=== PATIENT | female | born 1955 | race Caucasian/White ===

== ENCOUNTER → 2020-04-20 10:33 | Outpatient (BNVA) | payer MEDICARE, OTHER, SELFPAY | PROVIDERS: PCP Internal Medicine; Visit Provider Surgery | DX: C50.912 Malignant neoplasm of unspecified site of left female breast (principal); Z79.811 Long term (current) use of aromatase inhibitors; Z17.0 Estrogen receptor positive status [ER+] | CPT/HCPCS: 99212 ==

== ENCOUNTER 2020-10-03 08:39 | Outpatient (REF) | payer MEDICARE, OTHER, SELFPAY ==
[2020-10-03 09:40] LABS: Hematocrit 43.3 % (37-47); Hemoglobin 14.1 g/dl (12.0-16.0); Mean Corpuscular HGB Conc 32.6 g/dl (31.0-35.0); Mean Corpuscular Hemoglobin 31.8 pg (27.0-33.0); Mean Corpuscular Volume 97.5 fL (80-98); Mean Platelet Volume 9.8 fL (9.4-12.3); Platelet Count 227 X10*3/uL (160-400); Red Blood Count 4.44 X10*6/uL (4.20-5.50); Red Cell Distribution Width 12.9 % (11.0-16.0); White Blood Count 4.3 X10*3/uL (4.8-10.8)
[2020-10-03 10:06] LABS: Alanine Aminotransferase 18 U/L (0-31); Albumin Level 4.2 g/dL (3.5-5.0); Alkaline Phosphatase 86 U/L (39-117); Anion Gap 13 (12-20); Aspartate Amino Transferase 18 U/L (5-31); Bilirubin Direct 0.2 mg/dL (0.0-0.5); Bilirubin Total 0.5 mg/dL (0.0-1.0); Blood Urea Nitrogen 14 mg/dL (9-16); Calcium 9.4 mg/dL (8.4-10.2); Carbon Dioxide 27 mmol/L (22-29); Chloride 104 mmol/L (96-108); Cholesterol 188 mg/dL; Estimated Glomerular Filt Rate > 60; Glucose Random 106 mg/dL (60-115); HDL Cholesterol 60 mg/dL; LDL Cholesterol Calculated 114 mg/dl; Potassium 4.6 mmol/L (3.3-5.1); Sodium 139 mmol/L (135-145); Total Protein 6.7 g/dL (6.5-8.0); Triglycerides 70 mg/dL
[2020-10-03 10:29] LABS: Thyroid Stimulating Hormone 1.52 uIU/mL (0.32-4.0)
[2020-10-03 10:57] LABS: Glucose Urine UA NEG (NEG); Leukocyte Esterase Urine NEG (NEG); Nitrite Urine NEG (NEG); PH 6.5 (5.0-8.0); Urine Blood TRACE (NEG); Urine Ketones NEG (NEG); Urine Protein NEG (NEG-TRACE)
[2020-10-03 11:00] LABS: Appearance Urine CLEAR; Color Urine YELLOW
[2020-10-03 11:17] LABS: Squamous Epithelial Cell Urine TRACE /LPF; WBC Urine 0 /HPF (0-4)
== END 2020-10-03 08:40 | disposition home or self-care (01) ==
LOC: HO.LAB 08:39
PROVIDERS: PCP Internal Medicine; Visit Provider Internal Medicine
DX: E78.01 Familial hypercholesterolemia (principal)
CPT/HCPCS: 36415; 80048; 80061; 80076; 81001; 81003; 84443; 85027

== ENCOUNTER → 2020-10-18 10:18 | Outpatient (BNVA) | payer MEDICARE, OTHER, SELFPAY | PROVIDERS: PCP Internal Medicine; Referring Provider Internal Medicine; Visit Provider Surgery | DX: Z85.3 Personal history of malignant neoplasm of breast (principal) | CPT/HCPCS: 99212 ==

== ENCOUNTER → 2020-12-04 14:42 | Outpatient (REF) | payer MEDICARE, OTHER, SELFPAY ==
--- NOTE | 2020-12-04 14:46 | CA_ITS ---
Transthoracic Echocardiogram Patient (Last, First, Middle): Paulette Moore Jane Gender: Female Date of : 1955 Age: 64 Procedure Date: 12/04/2020 Procedure Type: Transthoracic Echocardiogram Location: OP Height: 160.02 cm Weight: 74.84 kg BSA: 1.78 m2 Heart Rate: bpm BP: 120 / 70 mmHg Inspectors And Regulatory Officers: JAGDEEP/PEPE Referring MD: Justo Haider MD Photographic Aide: Karsten Zhao MD Symptoms: H34.9 - Unspecified retinal vascular occlusion Study Quality: Fair ECG Rhythm: Sinus Conclusions: - 1. Normal LV systolic function with grade 1 diastolic dysfunction 2. Normal cardiac valvular Doppler 3. Normal RV systolic pressure 4. No pericardial effusion Findings Left Ventricle Normal left ventricular size, thickness, and systolic function. The visually estimated ejection fraction is between 60-65%. Spectral Doppler is indicative of an impaired relaxation filling pattern. E/E prime ratio is <8, consistent with normal filling pressures. Evidence suggests grade I (mild) diastolic dysfunction. Right Ventricle Normal right ventricular cavity size. Atria The left atrium is normal in size. There is lipomatous hypertrophy of the interatrial septum. There is no evidence of interatrial shunt. The right atrium is normal in size. Aortic Valve Normal aortic valve structure and function. There is no aortic valve stenosis. There is no aortic valve regurgitation. Mitral Valve Normal mitral valve structure and function. There is trace mitral valve regurgitation. There is no mitral valve stenosis. Pulmonic Valve The pulmonic valve is likely normal. There is trace to mild pulmonic valve regurgitation. Tricuspid Valve Likely normal tricuspid valve structure and function. There is trace tricuspid valve regurgitation. The right ventricular systolic pressure is normal. The right ventricular systolic pressure is 12 mmHg. Normal right atrial pressure. There is no evidence of pulmonary hypertension. Great Vessels All visible segments of the aorta are normal in size. The pulmonary artery was not well visualized. Venous The inferior vena cava is normal in size and collapses greater than 50% with inspiration. Pericardium/Pleural There is no evidence of pericardial effusion. Prior Study Comparison No prior study available for comparison. Measurements 2D Linear Measurements IVSd: 1.00 0.6-0.9/0.6-1.0 cm LVIDd: 5.06 3.9-5.3/4.2-5.9 cm LVIDd Index: 2.84 2.4-3.2/2.2-3.1 cm/m2 LVIDs: 2.81 2.0-3.6 cm LVPWd: 0.87 0.7-1.1 cm Ao Root: 3.90 2.1-3.5 cm LA Diam: 3.30 2.7-3.8/3.0-4.0 cm LAIDs Index: 1.85 1.5-2.3 cm/m2 LV Mass: 210.79 67-162/88-224 g LV Mass Index: 118.42 43-95/49-115 g/m2 LVOT Diam: 2.20 3.0+(-)1.3 cm 2D Systolic Function EF 4C: 65.10 >55% EF 2C: 65.20 >55% EF BiP: 65.80 >55% Mitral Valve MV Pk E: 0.42 MV PK A: 0.78 MV Decel Time: 272.00 E/A: 0.50 E'Lateral: 7.51 E'Medial: 10.10 E/E' Med: 4.20 E/E' Lat: 5.60 PHT: 80.00 MVA PHT: 2.75 Decel Platte: 1.55 Aortic Valve AoV Pk Bennie: 1.26 AoV Mn Bennie: 0.96 AoV VTI: 0.22 AoV Pk Grad: 6.00 Aov Mn Grad: 4.00 KRISTIE Cont.VTI: 3.40 LVOT LVOT Pk Bennie: 1.00 LVOT Mn Bennie: 0.70 LVOT VTI: 0.19 LVOT Pk Grad: 4.00 LVOT Mn Grad: 2.00 LVOT Diam: 2.20 LVOT Area: 3.80 Diastolic Function MV Pk E: 0.42 MV Pk A: 0.78 E/A: 0.50 E'Medial: 10.10 E/E' Med: 4.20 E' Laterial: 7.51 E/E' Lat: 5.60 Right Ventricle TAPSE (mm): 1.77 TVS' Bennie: 11.90 Tricuspid Valve TR Pk Bennie: 1.49 TR Pk Grad: 9.00 RA Press: 3.00 RVSP: 12.00 Great Vessels Aorta Ao Root-2D: 3.90 2.0-3.7 cm Ao Asc: 3.50 2.1-3.4 cm Ao Arch: 2.80 Updated in Other Vendor System with Status of Final Karsten Zhao MD electronically signed on 12/05/2020 3:55:31 PM with status of Final
== END ==
LOC: HO.CARD 14:42
PROVIDERS: PCP Internal Medicine; Visit Provider Internal Medicine
DX: H34.9 Unspecified retinal vascular occlusion (principal)
CPT/HCPCS: 93306

== ENCOUNTER 2021-05-03 08:12 | Outpatient (REF) | payer MEDICARE, OTHER, SELFPAY ==
[2021-05-03 09:33] LABS: Alanine Aminotransferase 17 U/L (0-31); Albumin Level 4.1 g/dL (3.5-5.0); Alkaline Phosphatase 102 U/L (39-117); Anion Gap 10 (12-20); Aspartate Amino Transferase 18 U/L (5-31); Bilirubin Total 0.7 mg/dL (0.0-1.0); Blood Urea Nitrogen 12 mg/dL (9-16); Calcium 9.7 mg/dL (8.4-10.2); Carbon Dioxide 27 mmol/L (22-29); Chloride 105 mmol/L (96-108); Cholesterol 180 mg/dL; Estimated Glomerular Filt Rate > 60; Glucose Fasting 107 mg/dL (60-99); HDL Cholesterol 58 mg/dL; LDL Cholesterol Calculated 106 mg/dl; Potassium 4.4 mmol/L (3.3-5.1); Sodium 138 mmol/L (135-145); Total Protein 6.8 g/dL (6.5-8.0); Triglycerides 83 mg/dL
== END 2021-05-03 08:13 | disposition home or self-care (01) ==
LOC: HO.LAB 08:12
PROVIDERS: PCP Internal Medicine; Visit Provider Nurse Practitioner Family
DX: R73.01 Impaired fasting glucose (principal); E78.5 Hyperlipidemia, unspecified
CPT/HCPCS: 36415; 80053; 80061

== ENCOUNTER 2021-11-29 08:14 | Outpatient (REF) | payer MEDICARE, OTHER, SELFPAY ==
--- NOTE | 2021-11-29 08:18 | ECG_ITS ---
Test Reason : Z01.818 PRE-OP Blood Pressure : / mmHG Vent. Rate : 072 BPM Atrial Rate : 072 BPM P-R Int : 160 ms QRS Dur : 094 ms QT Int : 368 ms P-R-T Axes : 032 006 051 degrees QTc Int : 402 ms Normal sinus rhythm Normal ECG No previous ECGs available Referred By: Peyton Kurtz Electronically Signed By:MONE AGUIRRE
[2021-11-29 08:28] LABS: MANUAL DIFF FLAG NO
[2021-11-29 09:00] LABS: Basophils Absolute Auto 0.1 X10*3/uL (0.0-0.2); Basophils Percent Auto 1.4 % (0-2); Eosinophils Absolute Auto 0.2 X10*3/uL (0.0-0.4); Eosinophils Percent Auto 3.7 % (0-4); Hematocrit 42.9 % (37.0-47.0); Hemoglobin 14.3 g/dl (12.0-16.0); Lymphocytes Absolute Auto 1.8 X10*3/uL (1.2-4.9); Lymphocytes Percent Auto 37.7 % (20-40); Mean Corpuscular HGB Conc 33.3 g/dl (31.0-35.0); Mean Corpuscular Hemoglobin 32.2 pg (27.0-33.0); Mean Corpuscular Volume 96.6 fL (80.0-98.0); Mean Platelet Volume 9.4 fL (9.4-12.3); Monocytes Absolute Auto 0.5 X10*3/uL (0.1-1.2); Monocytes Percent Auto 9.3 % (2-11); Neutrophils Absolute Auto 2.3 x10*3/uL (2.0-8.3); Neutrophils Percent Auto 47.9 % (45-73); Platelet Count 252 X10*3/uL (160-400); Red Blood Count 4.44 X10*6/uL (4.20-5.50); Red Cell Distribution Width 13.5 % (11.0-16.0); White Blood Count 4.9 X10*3/uL (4.8-10.8)
[2021-11-29 09:02] LABS: Estimated Average Glucose 103 mg/dL; Hemoglobin A1c % 5.2 %
[2021-11-29 09:18] LABS: Alanine Aminotransferase 17 U/L (0-31); Albumin Level 4.1 g/dL (3.5-5.0); Alkaline Phosphatase 93 U/L (39-117); Anion Gap 13 (12-20); Aspartate Amino Transferase 18 U/L (5-31); Bilirubin Total 0.6 mg/dL (0.0-1.0); Blood Urea Nitrogen 11 mg/dL (9-16); Calcium 9.3 mg/dL (8.4-10.2); Carbon Dioxide 27 mmol/L (22-29); Chloride 104 mmol/L (96-108); Cholesterol 178 mg/dL; Estimated Glomerular Filt Rate > 60; Glucose Fasting 100 mg/dL (60-99); HDL Cholesterol 56 mg/dL; LDL Cholesterol Calculated 105 mg/dl; Sodium 140 mmol/L (135-145); Total Protein 6.6 g/dL (6.5-8.0); Triglycerides 86 mg/dL
[2021-11-29 09:42] LABS: Vitamin D 25-OH Total 50.2 ng/mL (>30)
== END 2021-11-29 08:15 | disposition home or self-care (01) ==
LOC: HO.LAB 08:14
PROVIDERS: Nurse Practitioner Family; PCP Internal Medicine; Visit Provider Internal Medicine
DX: Z01.818 Encounter for other preprocedural examination (principal); D72.819 Decreased white blood cell count, unspecified; R73.01 Impaired fasting glucose; E55.9 Vitamin D deficiency, unspecified; E78.5 Hyperlipidemia, unspecified
CPT/HCPCS: 36415; 80053; 80061; 82306; 83036; 85025; 93005

== ENCOUNTER 2021-12-11 13:58 | Outpatient (REF) | payer MEDICARE, OTHER, SELFPAY | END 2021-12-11 13:59 | disposition home or self-care (01) | LOC: HO.LNP 13:58 | PROVIDERS: Visit Provider Nurse Practitioner Family | DX: R10.2 Pelvic and perineal pain (principal) | CPT/HCPCS: 87086 ==

== ENCOUNTER 2022-11-27 11:44 | Outpatient (AMB) | payer MEDICARE, OTHER, SELFPAY ==
[2022-11-27 11:42] VITALS: BP 122/90; PULSE 81; O2SAT 97; BMI 30.9
--- NOTE | 2022-11-27 11:42 | A.OFFPC_ITS ---
Vital Signs 11/27/22 11:42 11/27/22 12:32 Height 5 ft 2 in Weight 169 lb BMI 30.9 BP 122/90 H 120/78 Blood Pressure Location Lt brachial Lt brachial Position Sitting Sitting Pulse 81 Pulse Source Pulse Oximeter Temp Source Skin Pulse Oximetry (%) 97 Oxygen Delivery Method Room Air Intake Visit Reasons: Right total shoulder replacement-12/17 at [facility] Intake Note: Patient is here for a Pre-op for Right total shoulder replacement scheduled with Dr. Xavier Parson [facility] on 01/14 Inoculator Required: No Allergies mushroom [MUSHROOM] Allergy (Severe, Verified 11/27/22 12:11) ANAPHYLAXIS penicillamine Allergy (Unknown, Verified 11/27/22 12:11) Unknown penicillin V Allergy (Unknown, Verified 11/27/22 12:11) hives Medication List - Last Reconciled 11/27/22 by ADDY Villalta aspirin 81 mg PO DAILY cholecalciferol (vitamin D3) 25 mcg PO DAILY escitalopram oxalate 10 mg PO DAILY flaxseed oil 1,000 mg PO BID [id number] C-Mn 500-400 mg (Glucosamine-Chondroitin Complex) caps PO multivitamin caps PO PRN risperidone 0.25 mg PO DAILY simvastatin 20 mg PO DAILY Tobacco use date assessed: 11/27/22 Fall risk assessment: No Falls in past year Last assessed Fall Risk: 11/27/22 Dental Screening Dental Screen Date: 11/27/22 Did you have a dental visit in the last 12 months?: Yes Did you have a dental problem in the last 6 months where you did not have access to dental care?: No Was dental information given to patient?: Patient has dentist HPI Right total shoulder replacement-12/17 at [facility] HPI Details Patient is a 66-year-old female who presents today for preop clearance. Pt of Dr. Haider. Surgery: Right reverse total shoulder replacement due to right shoulder osteoarthritis Date: 01/14/23 Surgeon: Dr. Xavier Fonseca Location: [facility], [place], [place] Anaesthesia: General. Patient reports history of general anesthesia in the past that she tolerated well. Patient denies history of perioperative hypothermia or blood clotting disorders. Pt is on aspirin 81 mg daily. Medical history significant for hyperlipidemia, arthritis, history of left breast cancer, retinal artery occlusion - patient reports this have resolved- followed by Dr. Vincent, elevated fasting glucose among others. Patient denies shortness of breath or chest pain. [facility] Medical History Annual physical exam History of left breast cancer Breast cancer Frozen shoulder Arthritis Hyperlipidemia Surgical History History of colonoscopy History of cataract surgery History of total right knee replacement History of knee replacement procedure of left knee History of appendectomy History of oophorectomy History of lumpectomy History of hernia surgery Family History Mother Breast cancer, Onset Age: 52 Brother Renal cancer, Onset Age: 33 Maternal Aunt Breast cancer, Onset Age: 80 Social History Housing: House Alcohol intake: current Alcohol intake frequency: a few times a month Alcohol type: beer Patient Tobacco Use Status: Former Tobacco user Tobacco use type: Cigarette e-Cigarette/Vaping Use: Never Used Second Hand Smoke Exposure: No service: No Current occupational status: retired Cognitive needs: No Hearing needs: No Vision needs: Yes (glasses) Questionnaire PHQ-9 Over the last 2 weeks, how often have you been bothered by any of the following problems? 1. Little interest or pleasure in doing things: not at all 2. Feeling down, depressed, or hopeless: not at all 3. Trouble falling or staying asleep, or sleeping too much: not at all 4. Feeling tired or having little energy: not at all 5. Poor appetite or overeating: not at all 6. Feeling bad about yourself - or that you are a failure or have let yourself or your family down: not at all 7. Trouble concentrating on things, such as reading the newspaper or watching television: not at all 8. Moving or speaking so slowly that other people could have noticed. Or the opposite - being so fidgety or restless that you have been moving around a lot more than usual: not at all 9. Thoughts that you would be better off or of hurting yourself in some way: not at all Total score: 0 Depression Screening Interpretation: Negative 54199 - PHQ-9 Billing: Yes Source: Developed by Drs. Guy Lewis, Hermelinda Ruth, Kamaljit Tam and colleagues, with an educational samantha from [employer]. Thrive Questionnaire Date Thrive assessed: 07/26/22 AUDIT C Alcohol Use Questionnaire (AUDIT-C) 1. How often do you have a drink containing alcohol?: 2-4 times a month 2. How many drinks containing alcohol do you have on a typical day when you are drinking?: 1 or 2 3. How often do you have six or more drinks on one occasion?: Never Total Score: 2 Score Reviewed/Action Taken: No BLAZE-7 AMB Questionnaire BLAZE-7 Date BLAZE - 7 assessed: 07/26/22 Feeling nervous, anxious, or on edge: 1 = Several days (on medication) Not being able to stop or control worryin = Not at all Worrying too much about different things: 0 = Not at all Trouble relaxin = Not at all Being so restless that it is hard to sit still: 0 = Not at all Becoming easily annoyed or irritable: 0 = Not at all Feeling afraid as if something awful might happen: 0 = Not at all Total BLAZE-7 score (0-4 normal; 5-9 mild; 10-14 moderate; 15-21 severe): 1 Source: Developed by Drs. Guy Lewis, Hermelinda Ruth, Kamaljit horvath nd colleagues, with an educational samantha from [employer]. BLAZE-7 Assessment Billing BLAZE-7 Assessment Tool: BLAZE-7 Assessment 35236 Review of Systems Const Denies body aches, Denies chills, Denies fever(s) and Denies headache(s) Eyes Denies change in vision ENT Denies dizziness, Denies otalgia, Denies headache(s), Denies nasal discharge, Denies sinus pain and Denies sore throat Card Denies chest pain, Denies edema, Denies lightheadedness and Denies dyspnea Resp Denies cough, Denies dyspnea and Denies wheezing GI Denies constipation, Denies diarrhea, Denies nausea and Denies vomiting Denies dysuria Musc Denies myalgias and Reports arthralgias Skin/Breast Denies rash Neuro Denies dizziness and Denies headache(s) Aller/Immun Denies wheezing Physical exam (Primary Care) Vital Signs: Last Vital Signs Pulse 81 11/27/22 11:42 BP 120/78 11/27/22 12:32 Pulse Ox 97 11/27/22 11:42 Oxygen Delivery Method Room Air 11/27/22 11:42 BMI result Body Mass Index 30.9 Tobacco/Smoking Status: Tobacco use Status Tobacco use date assessed 11/27/22 11/27/22 11:44 Patient Tobacco Use Status Former Tobacco user 11/27/22 11:44 Tobacco use type Cigarette 11/27/22 11:44 e-Cigarette/Vaping Use Never Used 11/27/22 11:44 PHQ-9: PHQ-9 Score PHQ-9: Total score 0 11/28/22 08:55 Depression Screening Interpretation: Negative Thrive Assessment: Date of Thrive Assessment Date Thrive assessed 07/26/22 11/27/22 11:44 Const General: cooperative and no acute distress Orientation/consciousness: patient oriented x3 HENMT Head: Yes normocephalic and Yes atraumatic Ears: TM's normal bilaterally Face and sinus: Yes sinuses nontender Mouth: oropharynx normal and moist mucous membranes Throat: Yes posterior oropharynx normal Eyes General: appearance normal, both eyes and all related structures Pupils: Equal, round and reactive pupils present EOM: EOMs intact bilaterally Neck Neck: Yes normal visual inspection, Yes full ROM and Yes no lymphadenopathy Thyroid: Thyroid normal Resp Effort & Inspection: normal respiratory effort and able to speak in complete sentences Auscultation: clear to auscultation bilaterally, no crackles, no rales, no rh onchi and no wheezes Cardio Rate: regular rate Rhythm: regular rhythm Heart sounds: S1 normal heart sound present, S2 normal heart sound present and no murmurs GI Palpation (GI): Soft to palpation, not firm, nontender, no guarding, not rigid and no hepatosplenomegaly Auscultation: normal bowel sounds General: No CVA tenderness Back/Spine/Pelvis Back: No CVA tenderness Skin General skin exam: no rashes or lesions noted Neuro General: patient oriented x3 Cranial nerves: Yes Equal, round and reactive pupils present Gait exam (Neuro): Normal gait present Extrem General: Yes full ROM and No edema Results Reviewed Results Reviewed: Laboratory Tests 11/27/22 13:01 WBC 5.2 RBC 4.21 Hgb 13.9 Hct 41.2 MCV 97.9 MCH 33.0 MCHC 33.7 RDW 12.7 Plt Count 225 MPV 9.7 Absolute Nucleated RBC 0.000 Nucleated RBC % (auto) 0.0 PT 11.4 INR 0.9 Sodium 137 Potassium 4.2 Chloride 106 Carbon Dioxide 24 Anion Gap 11 L BUN 15 Creatinine 0.71 Estim Creat Clear Calc Not Reportable Estimated GFR > 60 Random Glucose 94 Estimat Average Glucose 103 Hemoglobin A1c % 5.2 Calcium 9.2 TSH 1.39 Assessment and Plan Assessment & Plan (1) Osteoarthritis of right shoulder: Code(s): M19.011 - Primary osteoarthritis, right shoulder Plan: Surgery: Right reverse total shoulder replacement due to right shoulder osteoarthritis Date: 01/14/23 Surgeon: Dr. Xavier Fonseca Location: [place], [place] Anaesthesia: General. Patient reports history of general anesthesia in the past that she tolerated well. (2) Pre-op evaluation: Code(s): Z01.818 - Encounter for other preprocedural examination Plan: METs > 4; RCRI Class 1 cardiovascular risk 0.4% for an intermediate risk surgery (recent blood work 11/2022) Regarding preop clearance, the patient is at acceptable risk for proposed surgery. Reviewed with the patient that no surgery is completely free of risk and that this examination is to assist the surgeon in reviewing informed consent. Postop care including DVT prophylaxis per surgeon. Patient is cleared for surgery. Patient is to hold flaxseed oil 2 weeks before surgery and aspirin 5 days before surgery. 11/27/2022 EKG with no acute findings, reviewed by Dr. Desai. Ordering Physician: Oralia Brady Date of Service: 11/27/22 Procedure(s): ECG 12 lead EKG Accession Number(s): [id number] cc: Oralia Brady~ Test Reason : preop Blood Pressure : / mmHG Vent. Rate : 068 BPM Atrial Rate : 068 BPM P-R Int : 152 ms QRS Dur : 090 ms QT Int : 370 ms P-R-T Axes : 037 -02 037 degrees QTc Int : 393 ms Normal sinus rhythm Normal ECG When compared with ECG of 29-NOV-2021 08:25, No significant change was found (3) Obesity (BMI 30.0-34.9): Code(s): E66.9 - Obesity, unspecified Plan: BMI 30.9 Orders: Orders Basic Metabolic Panel 11/27/22 M19.011 - Primary osteoarthritis, right shoulder, Z01.818 - Encounter for other preprocedural examination Hemoglobin A1c 11/27/22 Z01.818 - Encounter for other preprocedural examination ECG 12 lead EKG 11/27/22 Z01.818 - Encounter for other preprocedural examination Complete Blood Count no Diff 11/27/22 Z01.818 - Encounter for other preprocedural examination Prothrombin Time INR 11/27/22 Z01.818 - Encounter for other preprocedural examination TSH reflex Free T4 11/27/22 Z.818 - Encounter for other preprocedural examination Medications: Refilled simvastatin 20 mg PO DAILY 90 tabs 1RF E78.01 - Familial hypercholesterolemia Coding Level of Care Code Est Pt Level 3 (91480) Diagnoses Osteoarthritis of right shoulder M19.011 Pre-op evaluation Z01.818 Obesity (BMI 30.0-34.9) E66.9 Additional Codes BLAZE-7 Assessment Billing - BLAZE-7 Assessment Tool: BLAZE-7 Assessment 23371 ([id number])
[2022-11-27 12:32] VITALS: BP 120/78
== END 2022-11-27 13:16 | disposition home or self-care (01) ==
PROVIDERS: Visit Provider Nurse Practitioner Family
DX: M19.011 Primary osteoarthritis, right shoulder (principal); Z01.818 Encounter for other preprocedural examination; E66.9 Obesity, unspecified; Z68.30 Body mass index [BMI] 30.0-30.9, adult
CPT/HCPCS: 99213

== ENCOUNTER 2022-11-27 12:41 | Outpatient (REF) | payer MEDICARE, OTHER, SELFPAY ==
--- NOTE | 2022-11-27 12:45 | ECG_ITS ---
Test Reason : preop Blood Pressure : / mmHG Vent. Rate : 068 BPM Atrial Rate : 068 BPM P-R Int : 152 ms QRS Dur : 090 ms QT Int : 370 ms P-R-T Axes : 037 -02 037 degrees QTc Int : 393 ms Normal sinus rhythm Normal ECG When compared with ECG of 29-NOV-2021 08:25, No significant change was found Referred By: Oralia Brady Electronically Signed By:MONE AGUIRRE
[2022-11-27 13:19] LABS: Hematocrit 41.2 % (37.0-47.0); Hemoglobin 13.9 g/dl (12.0-16.0); Mean Corpuscular HGB Conc 33.7 g/dl (31.0-35.0); Mean Corpuscular Volume 97.9 fL (80.0-98.0); Mean Platelet Volume 9.7 fL (9.4-12.3); Platelet Count 225 X10*3/uL (160-400); Red Blood Count 4.21 X10*6/uL (4.20-5.50); Red Cell Distribution Width 12.7 % (11.0-16.0); White Blood Count 5.2 X10*3/uL (4.8-10.8)
[2022-11-27 13:23] LABS: INTERNATIONAL NORM RATIO 0.9 (0.9-1.1); Prothrombin Time 11.4 SEC (11.1-13.3)
[2022-11-27 13:39] LABS: Estimated Average Glucose 103 mg/dL; Hemoglobin A1C 118.7457 umol/L; Hemoglobin A1c % 5.2 % (<6.0)
[2022-11-27 14:14] LABS: Anion Gap 11 (12-20); Blood Urea Nitrogen 15 mg/dL (9-16); Calcium 9.2 mg/dL (8.4-10.2); Carbon Dioxide 24 mmol/L (22-29); Chloride 106 mmol/L (96-108); Estimated Glomerular Filt Rate > 60; Glucose Random 94 mg/dL (60-115); Potassium 4.2 mmol/L (3.3-5.1); Sodium 137 mmol/L (135-145)
[2022-11-27 14:20] LABS: TSH reflex Free T4 1.39 uIU/mL (0.32-4.0)
== END 2022-11-27 12:42 | disposition home or self-care (01) ==
LOC: HO.LAB 12:41
PROVIDERS: PCP Internal Medicine; Visit Provider Nurse Practitioner Family
DX: Z01.818 Encounter for other preprocedural examination (principal); M19.011 Primary osteoarthritis, right shoulder; D72.819 Decreased white blood cell count, unspecified; R73.01 Impaired fasting glucose; N28.0 Ischemia and infarction of kidney
CPT/HCPCS: 36415; 80048; 83036; 84443; 85027; 85610; 93005

== ENCOUNTER 2023-01-30 09:43 | Outpatient (AMB) | payer MEDICARE, OTHER, SELFPAY ==
--- NOTE | 2023-01-30 10:04 | MHC.PC.OV ---
Vital Signs 01/30/23 10:06 Height 5 ft 2 in Weight 168 lb BMI 30.7 BP 120/70 Blood Pressure Location Lt brachial Position Sitting Pulse 82 Pulse Source Pulse Oximeter Pulse Oximetry (%) 97 Oxygen Delivery Method Room Air Intake Visit Reasons: HLD Intake Note: Patient is here to follow up on HLD. Post right shoulder surgery. Senior Digital Designer Required: No Autism Motor Specialist: Not Required per policy Accompanied by: Self / Same As Patient Allergies mushroom [MUSHROOM] Allergy (Severe, Verified 02/09/23 13:41) ANAPHYLAXIS penicillamine Allergy (Unknown, Verified 02/09/23 13:41) Unknown penicillin V Allergy (Unknown, Verified 02/09/23 13:41) hives Medication List - Last Reconciled 02/09/23 by Justo Haider MD aspirin 81 mg PO DAILY cholecalciferol (vitamin D3) 25 mcg PO DAILY escitalopram oxalate 10 mg PO DAILY flaxseed oil 1,000 mg PO BID [id number]-[id number] C-Mn 500-400 mg (Glucosamine-Chondroitin Complex) caps PO multivitamin caps PO PRN risperidone 0.25 mg PO DAILY simvastatin 20 mg PO DAILY Tobacco use date assessed: 01/30/23 Fall risk assessment: No Falls in past year Last assessed Fall Risk: 01/30/23 Dental Screening Dental Screen Date: 01/30/23 Did you have a dental visit in the last 12 months?: Yes Did you have a dental problem in the last 6 months where you did not have access to dental care?: No Was dental information given to patient?: Patient has dentist HPI HLD HPI Details 67 yr old female presents to the office to discuss her chronic medical conditions. Patient recently underwent surgery on her right shoulder. She is healing well from the procedure. In a sling, continues physical therapy. Compliant with medications and able to do activities of all daily living. [facility] Medical History (Updated 11/27/22 @ 13:02 by ADDY Villalta) Annual physical exam History of left breast cancer Breast cancer Frozen shoulder Arthritis Hyperlipidemia Surgical History (Updated 01/30/23 @ 10:25 by RICARDO Payton) History of reverse total replacement of right shoulder joint History of colonoscopy History of cataract surgery History of total right knee replacement History of knee replacement procedure of left knee History of appendectomy History of oophorectomy History of lumpectomy History of hernia surgery Family History Mother Breast cancer, Onset Age: 52 Brother Renal cancer, Onset Age: 33 Maternal Aunt Breast cancer, Onset Age: 80 Housing: House Alcohol intake: current Alcohol intake frequency: a few times a month Alcohol type: beer Patient Tobacco Use Status: Former Tobacco user Tobacco use type: Cigarette e-Cigarette/Vaping Use: Never Used Second Hand Smoke Exposure: No service: No Current occupational status: retired Cognitive needs: No Hearing needs: No Vision needs: Yes (glasses) Questionnaire Thrive Questionnaire Date Thrive assessed: 07/26/22 BLAZE-7 AMB Questionnaire BLAZE-7 Date BLAZE - 7 assessed: 07/26/22 Source: Developed by Drs. Guy Lewis, Hermelinda Ruth, Kamaljit Tam and colleagues, with an educational samantha from [employer]. Physical exam (Primary Care) Vital Signs: Last Vital Signs Pulse 82 01/30/23 10:06 BP 120/70 01/30/23 10:06 Pulse Ox 97 01/30/23 10:06 Oxygen Delivery Method Room Air 01/30/23 10:06 BMI result Body Mass Index 30.7 Tobacco/Smoking Status: Tobacco use Status Tobacco use date assessed 01/30/23 01/30/23 10:27 Patient Tobacco Use Status Former Tobacco user 01/30/23 10:27 Tobacco use type Cigarette 01/30/23 10:27 e-Cigarette/Vaping Use Never Used 01/30/23 10:27 Thrive Assessment: Date of Thrive Assessment Date Thrive assessed 07/26/22 01/30/23 10:27 Const General: cooperative and healthy appearing Nutritional Appearance: well nourished Orientation/consciousness: patient oriented x3 Limitations: no limitations HENMT Head: Yes normal to inspection Eyes General: appearance normal, both eyes and all related structures Neck Neck: Yes normal visual inspection Chest Chest palpation & inspection: normal palpation of entire chest wall Resp Effort & Inspection: normal respiratory effort Neuro General: patient oriented x3 Extrem Other: Right shoulder is in a sling. Assessment and Plan Assessment & Plan (1) Osteoarthritis of right shoulder: Code(s): M19.011 - Primary osteoarthritis, right shoulder Plan: Continue medications and current program of physical therapy. (2) Hyperlipidemia: Code(s): E78.5 - Hyperlipidemia, unspecified Qualifiers: Hyperlipidemia type: familial hypercholesterolemia Qualified Code(s): E78.01 - Familial hypercholesterolemia Plan: BW revd with patient. Continue medications at same dosage. (3) Breast cancer: Comment: 2016 Code(s): C50.919 - Malignant neoplasm of unspecified site of unspecified female breast Qualifiers: Breast location: unspecified site of breast Estrogen receptor status: unspecified Patient sex: female Laterality: unspecified laterality Qualified Code(s): C50.919 - Malignant neoplasm of unspecified site of unspecified female breast Plan: Condition is stable. Coding Level of Care Code Est Pt Level 4 (23342) Diagnoses Osteoarthritis of right shoulder M19.011 Familial hypercholesterolemia E78.01 Hyperlipidemia type: familial hypercholesterolemia Malignant neoplasm of female breast, unspecified estrogen receptor status, unspecified laterality, unspecified site of breast C50.919 Breast location: unspecified site of breast Estrogen receptor status: unspecified Patient sex: female Laterality: unspecified laterality
[2023-01-30 10:06] VITALS: BP 120/70; PULSE 82; O2SAT 97; BMI 30.7
== END 2023-01-30 10:59 | disposition home or self-care (01) ==
PROVIDERS: Visit Provider Internal Medicine
DX: M19.011 Primary osteoarthritis, right shoulder (principal); E78.01 Familial hypercholesterolemia; C50.919 Malignant neoplasm of unspecified site of unspecified female breast
CPT/HCPCS: 99214

== ENCOUNTER 2023-02-20 07:02 | Outpatient (AMB) | payer MEDICARE, OTHER, SELFPAY ==
[2023-02-20 07:14] VITALS: BP 138/92; PULSE 80; TEMP 36.2; O2SAT 98; BMI 30.9
--- NOTE | 2023-02-20 07:14 | A.OFFPC_ITS ---
Vital Signs 3 02/20/23 07:14 Height 5 ft 2 in Weight 169 lb BMI 30.9 BP 138/92 H Blood Pressure Location Lt brachial Position Sitting Pulse 80 Pulse Source Pulse Oximeter Temp 97.2 F Temp Source Oral Pulse Oximetry (%) 98 Oxygen Delivery Method Room Air Intake Visit Reasons: swollen lymph nodes, bumps on head Allergies mushroom [MUSHROOM] Allergy (Severe, Verified 02/20/23 07:43) ANAPHYLAXIS penicillamine Allergy (Unknown, Verified 02/20/23 07:43) Unknown penicillin V Allergy (Unknown, Verified 02/20/23 07:43) hives Medication List - Last Reconciled 02/20/23 by ADDY Akers aspirin 81 mg PO DAILY cholecalciferol (vitamin D3) 25 mcg PO DAILY escitalopram oxalate 10 mg PO DAILY flaxseed oil 1,000 mg PO BID [id number]-icbxyjujf-fwm C-Mn 500-400 mg (Glucosamine-Chondroitin Complex) caps PO multivitamin caps PO PRN risperidone 0.25 mg PO DAILY simvastatin 20 mg PO DAILY Tobacco use date assessed: 01/30/23 Fall risk assessment: No Falls in past year Last assessed Fall Risk: 02/20/23 Dental Screening Dental Screen Date: 02/20/23 Did you have a dental visit in the last 12 months?: Yes Did you have a dental problem in the last 6 months where you did not have access to dental care?: No Was dental information given to patient?: Patient has dentist HPI HPI Comments 2 History of Present Illness0 Details 67-year-old female past medical history significant for hyperlipidemia, arthritis, frozen shoulder, breast cancer. Patient of Dr. Vitaly austin seen in January. Patient presents today for neck lump. Patient reports has had right sided neck lump x 1 year and she was hoping after her shoulder surgery it would resolve. Approximately 0.25cm x0.25cm mobile neck lump noted on examination. no erythema. Patient denies any other lumps, denies fevers,chills and unexplained weight loss. Denies difficulty swallowing. Patient reports was using old shampoo which he scalp to get itchy and she felt little bumps. 2 small scabbed dejah noted to scalp from scrathcing no lumps noted, no signs of inflammation or infection. Patient advised if scalp is dry and flaky to try OTC head and shoulders. PFSH Medical History (Updated 02/20/23 @ 07:33 by ADDY Akers) Annual physical exam History of left breast cancer Breast cancer Frozen shoulder Arthritis Hyperlipidemia Surgical History (Updated 01/30/23 @ 10:25 by RICARDO Payton) History of reverse total replacement of right shoulder joint History of colonoscopy History of cataract surgery History of total right knee replacement History of knee replacement procedure of left knee History of appendectomy History of oophorectomy History of lumpectomy History of hernia surgery Family History Mother Breast cancer, Onset Age: 52 Brother Renal cancer, Onset Age: 33 Maternal Aunt Breast cancer, Onset Age: 80 Social History Housing: House Alcohol intake: current Alcohol intake frequency: a few times a month Alcohol type: beer Patient Tobacco Use Status: Former Tobacco user Tobacco use type: Cigarette e-Cigarette/Vaping Use: Never Used Second Hand Smoke Exposure: No service: No Current occupational status: retired Cognitive needs: No Hearing needs: No Vision needs: Yes (glasses) Questionnaire PHQ-9 Over the last 2 weeks, how often have you been bothered by any of the following problems? 1. Little interest or pleasure in doing things: not at all 2. Feeling down, depressed, or hopeless: not at all 3. Trouble falling or staying asleep, or sleeping too much: not at all 4. Feeling tired or having little energy: not at all 5. Poor appetite or overeating: not at all 6. Feeling bad about yourself - or that you are a failure or have let yourself or your family down: not at all 7. Trouble concentrating on things, such as reading the newspaper or watching television: not at all 8. Moving or speaking so slowly that other people could have noticed. Or the opposite - being so fidgety or restless that you have been moving around a lot more than usual: not at all 9. Thoughts that you would be better off or of hurting yourself in some way: not at all Total score: 0 Depression Screening Interpretation: Negative Depression Screening Done: Yes 39094 - PHQ-9 Billing: Yes Source: Developed by Drs. Guy Lewis, Hermelinda Ruth, Kamaljit Tam and colleagues, with an educational samantha from [employer]. Thrive Questionnaire Date Thrive assessed: 07/26/22 AUDIT C Alcohol Use Questionnaire (AUDIT-C) 1. How often do you have a drink containing alcohol?: 2-4 times a month 2. How many drinks containing alcohol do you have on a typical day when you are drinking?: 1 or 2 3. How often do you have six or more drinks on one occasion?: Never Total Score: 2 Score Reviewed/Action Taken: No BLAZE-7 AMB Questionnaire BLAZE-7 Date BLAZE - 7 assessed: 07/26/22 Source: Developed by Drs. Guy Lewis, Hermelinda Ruth, Kamaljit Tam and colleagues, with an educational samantha from [employer]. Review of Systems Const Denies chills, Denies fatigue, Denies fever(s) and Denies poor appetite Eyes Denies no additional complaints ENT Reports Normal hearing present and Reports neck mass (right posterior neck lump ) Card Denies chest pain, Denies syncope, Denies rapid heart rate and Denies dyspnea Resp Denies cough and Denies dyspnea GI Denies change in stool character, Denies constipation, Denies diarrhea, Denies nausea and Denies vomiting Denies urinary frequency, Denies dysuria and Denies urinary urgency Neuro Reports Normal hearing present, Denies confusion and Denies syncope Psych Denies confusion Endo Denies fatigue Physical exam (Primary Care) Tobacco/Smoking Status: Tobacco use Status Tobacco use date assessed 01/30/23 01/30/23 10:27 Patient Tobacco Use Status Former Tobacco user 01/30/23 10:27 Tobacco use type Cigarette 01/30/23 10:27 e-Cigarette/Vaping Use Never Used 01/30/23 10:27 Depression Screening Interpretation: Negative Thrive Assessment: Date of Thrive Assessment Date Thrive assessed 07/26/22 01/30/23 10:27 Const General: No confusion Orientation/consciousness: No confusion HENMT Head: Yes normocephalic and Yes atraumatic Head images: 2 1. approximately 0.25x 0.25cm mobile neck mass, no erythema, non indurated, no fluctuance noted. Eyes Conjunctivae: conjunctivae normal Chest Chest palpation & inspection: normal inspection of the chest Resp Effort & Inspection: normal respiratory effort Auscultation: clear to auscultation bilaterally, no crackles, no rhonchi and no wheezes Cardio Rate: regular rate Rhythm: regular rhythm Heart sounds: S1 normal heart sound present and S2 normal heart sound present GI Inspection: Yes normal to inspection Neuro General: No confusion Cranial nerves: Yes Normal hearing present Extrem General: No edema Assessment and Plan Assessment & Plan (1) Localized swelling, mass and lump, neck: Code(s): R22.1 - Localized swelling, mass and lump, neck Plan: U/S ordered to furthure evaluate. Patients pcp to be cc'd on ultrasound results. (2) Dry scalp: Code(s): R23.8 - Other skin changes Plan: Patient advised if scalp continues to be dry/itching follow discontinuation of using her old shampoo to try OTC head and shoulders. If no improvement or worsening symptoms follow up. Patient agreeable to plan of care. Plan Keep scheduled follow up with pcp or follow up sooner if needed. Orders: Orders 2 US soft tiss head and/or neck Today R22.1 - Localized swelling, mass and lump, neck Coding Level of Care Code Est Pt Level 3 (63291) Diagnoses Localized swelling, mass and lump, neck R22.1 Dry scalp R23.8
== END 2023-02-20 07:38 | disposition home or self-care (01) ==
PROVIDERS: PCP Internal Medicine; Visit Provider Nurse Practitioner Family
DX: R22.1 Localized swelling, mass and lump, neck (principal); R23.8 Other skin changes
CPT/HCPCS: 99213

== ENCOUNTER 2023-02-27 13:17 | Outpatient (REF) | payer MEDICARE, OTHER, SELFPAY ==
--- NOTE | ~2023-02-27 | US_ITS ---
EXAMINATION: US SOFT TISSUE HEAD/NECK CLINICAL INFORMATION: Localized swelling, mass and lump, neck-right posterior neck lump. COMPARISON: None available. TECHNIQUE: Linear transducer willams-scale and color Doppler examination of the right neck level Va. FINDINGS: There are 2 architecturally normal-appearing lymph nodes seen in the area of clinical concern measuring 1.4 x 0.2 x 0.7 cm and 0.8 x 0.5 x 0.4 cm. US/US soft tiss head and/or neck IMPRESSION: Normal-appearing lymph nodes.
== END 2023-02-27 13:18 | disposition home or self-care (01) ==
LOC: HO.HMGCX 13:17
PROVIDERS: PCP Internal Medicine; Visit Provider Nurse Practitioner Family
DX: R22.1 Localized swelling, mass and lump, neck (principal)
CPT/HCPCS: 76536

== ENCOUNTER 2023-07-31 09:58 | Outpatient (AMB) | payer MEDICARE, OTHER, SELFPAY ==
--- NOTE | 2023-07-31 10:47 | A.OFFPC_ITS ---
Vital Signs 07/31/23 10:50 Height 5 ft 2 in Weight 171 lb BMI 31.3 BP 110/64 Blood Pressure Location Rt brachial Position Sitting Pulse 84 Pulse Source Pulse Oximeter Pulse Oximetry (%) 97 Oxygen Delivery Method Room Air Intake Visit Reasons: 6mth f/u Intake Note: Patient is here to follow up on HLD, Arthritis. Pt requesting for bone density testing order Neighborhood Conservation Officer Required: No Auto Repair Technician: Not Required per policy Accompanied by: Self / Same As Patient Allergies mushroom [MUSHROOM] Allergy (Severe, Verified 08/01/23 15:50) ANAPHYLAXIS penicillamine Allergy (Unknown, Verified 08/01/23 15:50) Unknown penicillin V Allergy (Unknown, Verified 08/01/23 15:50) hives Medication List - Last Reconciled 08/01/23 by Justo Haider MD aspirin 81 mg PO DAILY cholecalciferol (vitamin D3) 25 mcg PO DAILY cyclobenzaprine 10 mg PO BEDTIME escitalopram oxalate 10 mg PO DAILY flaxseed oil 1,000 mg PO BID [id number]-[id number]-[id number] C-Mn 500-400 mg (Glucosamine-Chondroitin Complex) caps PO multivitamin caps PO PRN risperidone 0.25 mg PO DAILY simvastatin 20 mg PO DAILY Tobacco use date assessed: 07/31/23 Fall risk assessment: No Falls in past year Last assessed Fall Risk: 07/31/23 Dental Screening Dental Screen Date: 07/31/23 Did you have a dental visit in the last 12 months?: Yes Did you have a dental problem in the last 6 months where you did not have access to dental care?: No Was dental information given to patient?: Patient has dentist HPI 6mth f/u HPI Details 67-year-old female presents to the offic e to discuss her chronic medical conditions. Patient has history of spondylosis and as a result the right side of her neck is always hurting. Pain is worse on turning the head towards the left side. She has minimal discomfort at all times on the right side of the neck. Patient recently had x-rays of her spine and was told she has a calcified thyroid. Compliant with her medications and reporting no side effects. Able to function and do all activities of daily living. Patient would like to get a DEXA scan. [facility] Medical History (Updated 08/01/23 @ 15:55 by Justo Haider MD) Spondylosis Annual physical exam History of left breast cancer Breast cancer Frozen shoulder Arthritis Hyperlipidemia Surgical History History of reverse total replacement of right shoulder joint History of colonoscopy History of cataract surgery History of total right knee replacement History of knee replacement procedure of left knee History of appendectomy History of oophorectomy History of lumpectomy History of hernia surgery Family History Mother Breast cancer, Onset Age: 52 Brother Renal cancer, Onset Age: 33 Maternal Aunt Breast cancer, Onset Age: 80 Social History Housing: House Alcohol intake: current Alcohol intake frequency: a few times a month Alcohol type: beer Patient Tobacco Use Status: Former Tobacco user Tobacco use type: Cigarette e-Cigarette/Vaping Use: Never Used Second Hand Smoke Exposure: Yes service: No Current occupational status: retired Cognitive needs: No Hearing needs: No Vision needs: Yes (glasses) Questionnaire PHQ-9 Over the last 2 weeks, how often have you been bothered by any of the following problems? 1. Little interest or pleasure in doing things: not at all 2. Feeling down, depressed, or hopeless: not at all 3. Trouble falling or staying asleep, or sleeping too much: not at all 4. Feeling tired or having little energy: not at all 5. Poor appetite or overeating: not at all 6. Feeling bad about yourself - or that you are a failure or have let yourself or your family down: not at all 7. Trouble concentrating on things, such as reading the newspaper or watching television: not at all 8. Moving or speaking so slowly that other people could have noticed. Or the opposite - being so fidgety or restless that you have been moving around a lot more than usual: not at all 9. Thoughts that you would be better off or of hurting yourself in some way: not at all Total score: 0 Depression Screening Interpretation: Negative Depression Screening Done: Yes Source: Developed by Drs. Guy Lewis, Hermelinda Ruth, Kamaljit Tam and colleagues, with an educational samantha from [employer]. Thrive Questionnaire Date Thrive assessed: 07/31/23 I am a: Patient What is your living situation today?: I have a steady place to live Within the past 12 months, did the food you bought not last and you didn't have the money to get more?: Never true Within the past 12 months, did you worry whether your food would run out before you got money to buy more?: Never true Do you have trouble paying for medicines?: No Do you have trouble getting transportation to medical appointments?: No Do you have trouble paying your heating and electricity bill?: No Do you have trouble taking care of your child, family member or friend?: No Do you have trouble with day-to-day activities such as bathing, preparing meals, shopping, managing finances, etc.?: No Are you currently unemployed and looking for a job?: No Are you interested in more education?: No Currently or been in a relationship where the following occur: no concerns re ported THRIVE Score: 0 AUDIT C Alcohol Use Questionnaire (AUDIT-C) 1. How often do you have a drink containing alcohol?: 2-4 times a month 2. How many drinks containing alcohol do you have on a typical day when you are drinking?: 1 or 2 Total Score: 2 BLAZE-7 AMB Questionnaire BLAZE-7 Date BLAZE - 7 assessed: 07/31/23 Feeling nervous, anxious, or on edge: 0 = Not at all Not being able to stop or control worryin = Not at all Worrying too much about different things: 0 = Not at all Trouble relaxin = Not at all Being so restless that it is hard to sit still: 0 = Not at all Becoming easily annoyed or irritable: 0 = Not at all Feeling afraid as if something awful might happen: 0 = Not at all Total BLAZE-7 score (0-4 normal; 5-9 mild; 10-14 moderate; 15-21 severe): 0 Source: Developed by Drs. Guy Lewis, Hermelinda Ruth, Kamaljit Tam and colleagues, with an educational samantha from [employer]. Physical exam (Primary Care) Vital Signs: Last Vital Signs Pulse 84 07/31/23 10:50 BP 110/64 07/31/23 10:50 Pulse Ox 97 07/31/23 10:50 Oxygen Delivery Method Room Air 07/31/23 10:50 BMI result Body Mass Index 31.3 Tobacco/Smoking Status: Tobacco use Status Tobacco use date assessed 07/31/23 07/31/23 10:55 Patient Tobacco Use Status Former Tobacco user 07/31/23 10:55 Tobacco use type Cigarette 07/31/23 10:55 e-Cigarette/Vaping Use Never Used 07/31/23 10:55 PHQ-9: PHQ-9 Score PHQ-9: Total score 0 08/01/23 15:10 Depression Screening Interpretation: Negative Thrive Assessment: Date of Thrive Assessment Date Thrive assessed 07/31/23 07/31/23 10:55 Currently or been in a relationship where the following occur: no concerns reported Advance Care Planning discussion: Exists, not on file Date of discussion: 07/31/23 Who was present: Patient Forms completed: Health Care Proxy Time spent: 1-15 minutes, not on file Actual minutes spent: 5 Const General: cooperative and healthy appearing Nutritional Appearance: well nourished Orientation/consciousness: patient oriented x3 Limitations: no limitations HENMT Head: Yes normal to inspection Eyes General: appearance normal, both eyes and all related structures Neck Neck: Yes normal visual inspection Chest Chest palpation & inspection: normal palpation of entire chest wall Resp Effort & Inspection: normal respiratory effort Neuro General: patient oriented x3 Assessment and Plan Assessment & Plan (1) Hyperlipidemia: Code(s): E78.5 - Hyperlipidemia, unspecified Qualifiers: Hyperlipidemia type: familial hypercholesterolemia Qualified Code(s): E78.01 - Familial hypercholesterolemia Plan: BW has been ordered, will call with results. (2) Spondylosis: Code(s): M47.9 - Spondylosis, unspecified Plan: Muscle relaxants have been called in Orders: Orders Complete Blood Count no Diff Today E78.01 - Familial hypercholesterolemia Lipid Panel Today E78.01 - Familial hypercholesterolemia Thyroid Stimulating Hormone Today E78.01 - Familial hypercholesterolemia XR DEXA axial skeleton Today M81.0 - Age-related osteoporosis without current pathological fracture MM screening mammo BI Today Z12.31 - Encounter for screening mammogram for malignant neoplasm of breast Basic Metabolic Panel Today E78.01 - Familial hypercholesterolemia Liver Panel Today E78.01 - Familial hypercholesterolemia UA and rflx microscopic Today E78.01 - Familial hypercholesterolemia Referrals BIBLICAL LANGUAGES PROFESSOR Referral Z12.4 - Encounter for screening for malignant neoplasm of cerv ix Medications: New cyclobenzaprine 10 mg PO BEDTIME 14 tabs 0RF Refilled simvastatin 20 mg PO DAILY 90 tabs 1RF E78.01 - Familial hypercholesterolemia Coding Level of Care Code Est Pt Level 3 (89235) Diagnoses Familial hypercholesterolemia E78.01 Hyperlipidemia type: familial hypercholesterolemia Spondylosis M47.9 Additional Codes Vital Signs *Quality* - Advance Care Planning discussion: Exists, not on file ([id number]) Vital Signs *Quality* - Time spent: 1-15 minutes, not on file ([id number])
[2023-07-31 10:50] VITALS: BP 110/64; PULSE 84; O2SAT 97; BMI 31.3
== END 2023-07-31 11:45 | disposition home or self-care (01) ==
PROVIDERS: PCP Internal Medicine; Visit Provider Internal Medicine
DX: E78.01 Familial hypercholesterolemia (principal); M47.9 Spondylosis, unspecified; Z00.00 Encounter for general adult medical examination without abnormal findings
CPT/HCPCS: 1124F; 99213

== ENCOUNTER 2023-08-02 08:52 | Outpatient (REF) | payer MEDICARE, OTHER, SELFPAY ==
[2023-08-02 09:12] LABS: Hematocrit 40.3 % (37.0-47.0); Hemoglobin 14.1 g/dl (12.0-16.0); Mean Corpuscular Hemoglobin 33.5 pg (27.0-33.0); Mean Corpuscular Volume 95.7 fL (80.0-98.0); Mean Platelet Volume 9.3 fL (9.4-12.3); Platelet Count 216 X10*3/uL (160-400); Red Blood Count 4.21 X10*6/uL (4.20-5.50); Red Cell Distribution Width 12.9 % (11.0-16.0); White Blood Count 4.5 X10*3/uL (4.8-10.8)
[2023-08-02 09:54] LABS: Alanine Aminotransferase 17 U/L (0-31); Alkaline Phosphatase 84 U/L (39-117); Anion Gap 14 (12-20); Aspartate Amino Transferase 18 U/L (5-31); Bilirubin Direct 0.2 mg/dL (0.0-0.5); Bilirubin Total 0.6 mg/dL (0.0-1.0); Blood Urea Nitrogen 16 mg/dL (9-16); Carbon Dioxide 23 mmol/L (22-29); Chloride 107 mmol/L (96-108); Cholesterol 171 mg/dL (<200); Estimated Glomerular Filt Rate > 60; Glucose Random 98 mg/dL (60-115); HDL Cholesterol 61 mg/dL (>40); LDL Cholesterol Calculated 99 mg/dL (<100); Sodium 140 mmol/L (135-145); Total Protein 6.7 g/dL (6.5-8.0); Triglycerides 59 mg/dL (<150)
[2023-08-02 10:08] LABS: Thyroid Stimulating Hormone 1.51 uIU/mL (0.32-4.0)
== END 2023-08-02 08:53 | disposition home or self-care (01) ==
LOC: HO.LAB 08:52
PROVIDERS: PCP Internal Medicine; Visit Provider Internal Medicine
DX: E78.01 Familial hypercholesterolemia (principal)
CPT/HCPCS: 36415; 80048; 80061; 80076; 84443; 85027

== ENCOUNTER 2023-08-04 11:42 | Outpatient (REF) | payer MEDICARE, OTHER, SELFPAY ==
[2023-08-04 12:02] LABS: Appearance Urine Clear; Color Urine Yellow; Glucose Urine UA Negative (Negative); Leukocyte Esterase Urine Negative (Negative); Nitrite Urine Negative (Negative); Urine Blood Negative (Negative); Urine Ketones Negative (Negative); Urine Protein Negative (Neg-Trace)
== END 2023-08-04 11:43 | disposition home or self-care (01) ==
LOC: HO.LNP 11:42
PROVIDERS: Visit Provider Internal Medicine
DX: E78.01 Familial hypercholesterolemia (principal)
CPT/HCPCS: 81003

== ENCOUNTER 2024-02-04 09:56 | Outpatient (AMB) | payer MEDICARE, OTHER, SELFPAY ==
--- NOTE | 2024-02-04 10:02 | MHC.PC.OV ---
Vital Signs 02/04/24 10:04 Height 5 ft 2 in Weight 171 lb BMI 31.3 BP 120/70 Blood Pressure Location Rt brachial Position Sitting Pulse 94 Pulse Source Pulse Oximeter Pulse Oximetry (%) 96 Oxygen Delivery Method Room Air Intake Visit Reasons: 6mof\u Intake Note: Patient is here to follow up on OA, HLD, Hx Breast cancer. Final Inspector Movement Assembly Required: No Honing Machine Operator Semiautomatic: Not Required per policy Accompanied by: Self / Same As Patient Allergies mushroom [MUSHROOM] Allergy (Severe, Verified 02/04/24 10:50) ANAPHYLAXIS penicillamine Allergy (Unknown, Verified 02/04/24 10:50) Unknown penicillin V Allergy (Unknown, Verified 02/04/24 10:50) hives Medication List - Last Reconciled 02/04/24 by Justo Haider MD aspirin 81 mg PO DAILY cholecalciferol (vitamin D3) 25 mcg PO DAILY cyclobenzaprine 10 mg PO BEDTIME escitalopram oxalate 10 mg PO DAILY flaxseed oil 1,000 mg PO BID [id number]-xugpbeaoy-kwc C-Mn 500-400 mg (Glucosamine-Chondroitin Complex) caps PO multivitamin caps PO PRN risperidone 0.25 mg PO DAILY simvastatin 20 mg PO DAILY Tobacco use date assessed: 02/04/24 Fall risk assessment: 1 Fall in past year Last assessed Fall Risk: 02/04/24 Dental Screening Dental Screen Date: 07/31/23 HPI 6mof\u HPI Details 68-year-old female presents to the office for a follow-up visit. Patient is compliant with medications and reports no side effects. She took cyclobenzaprine and had immediate relief with her neck pain. She only took the medication for 3 days. She is now at her baseline state of health. Able to function and do all activities of daily living. Patient is very independent, drives at night, lives alone and reports no incontinence to urine. Patient is able to manage her finances independently. [facility] Medical History (Updated 08/01/23 @ 15:55 by Justo Haider MD) Spondylosis Annual physical exam History of left breast cancer Breast cancer Frozen shoulder Arthritis Hyperlipidemia Surgical History History of reverse total replacement of right shoulder joint History of colonoscopy History of cataract surgery History of total right knee replacement History of knee replacement procedure of left knee History of appendectomy History of oophorectomy History of lumpectomy History of hernia surgery Family History Mother Breast cancer, Onset Age: 52 Brother Renal cancer, Onset Age: 33 Maternal Aunt Breast cancer, Onset Age: 80 Social History Housing: House Alcohol intake: current Alcohol intake frequency: a few times a month Alcohol type: beer Patient Tobacco Use Status: Former Tobacco user Tobacco use type: Cigarette e-Cigarette/Vaping Use: Never Used Second Hand Smoke Exposure: Yes service: No Current occupational status: retired Cognitive needs: No Hearing needs: No Vision needs: Yes (glasses) Questionnaire Thrive Questionnaire Date Thrive assessed: 07/31/23 AUDIT C Alcohol Use Questionnaire (AUDIT-C) 2. How many drinks containing alcohol do you have on a typical day when you are drinking?: 1 or 2 3. How often do you have six or more drinks on one occasion?: Never Total Score: 0 BLAZE-7 AMB Questionnaire BLAZE-7 Date BLAZE - 7 assessed: 07/31/23 Source: Developed by Drs. Guy Lewis, Hermelinda Ruth, Kamaljit Tam and colleagues, with an educational samantha from [employer]. Physical exam (Primary Care) Vital Signs: Last Vital Signs Pulse 94 02/04/24 10:04 BP 120/70 02/04/24 10:04 Pulse Ox 96 02/04/24 10:04 Oxygen Delivery Method Room Air 02/04/24 10:04 BMI result Body Mass Index 31.3 Tobacco/Smoking Status: Tobacco use Status Tobacco use date assessed 02/04/24 02/04/24 10:07 Patient Tobacco Use Status Former Tobacco user 02/04/24 10:07 Tobacco use type Cigarette 02/04/24 10:07 e-Cigarette/Vaping Use Never Used 02/04/24 10:07 Thrive Assessment: Date of Thrive Assessment Date Thrive assessed 07/31/23 02/04/24 10:07 Const General: cooperative and healthy appearing Nutritional Appearance: well nourished Orientation/consciousness: patient oriented x3 Limitations: no limitations HENMT Head: Yes normal to inspection Eyes General: appearance normal, both eyes and all related structures Neck Neck: Yes normal visual inspection Chest Chest palpation & inspection: normal palpation of entire chest wall Resp Effort & Inspection: normal respiratory effort Neuro General: patient oriented x3 Coding Level of Care Code Est Pt Level 4 (73969) Diagnoses Familial hypercholesterolemia E78.01 Hyperlipidemia type: familial hypercholesterolemia Malignant neoplasm of female breast, unspecified estrogen receptor status, unspecified laterality, unspecified site of breast C50.919 Breast location: unspecified site of breast Estrogen receptor status: unspecified Patient sex: female Laterality: unspecified laterality Assessment & Plan Assessment & Plan (1) Hyperlipidemia: Code(s): E78.5 - Hyperlipidemia, unspecified Category: Medical Qualifiers: Hyperlipidemia type: familial hypercholesterolemia Qualified Code(s): E78.01 - Familial hypercholesterolemia Plan: Blood work reviewed. Repeat blood work in 6 months. (2) Breast cancer: Comment: 2015 Code(s): C50.919 - Malignant neoplasm of unspecified site of unspecified female breast Category: Medical Qualifiers: Breast location: unspecified site of breast Estrogen receptor status: unspecified Patient sex: female Laterality: unspecified laterality Qualified Code(s): C50.919 - Malignant neoplasm of unspecified site of unspecified female breast Plan: Patient had a recent mammogram which was in range. Medications: Refilled simvastatin 20 mg PO DAILY 90 tabs 1RF E78.01 - Familial hypercholesterolemia
[2024-02-04 10:04] VITALS: BP 120/70; PULSE 94; O2SAT 96; BMI 31.3
== END 2024-02-04 10:45 | disposition home or self-care (01) ==
PROVIDERS: PCP Internal Medicine; Visit Provider Internal Medicine
DX: E78.01 Familial hypercholesterolemia (principal); C50.919 Malignant neoplasm of unspecified site of unspecified female breast

== ENCOUNTER → 2024-02-04 09:56 | Outpatient (BNVA) | payer MEDICARE, OTHER, SELFPAY | PROVIDERS: PCP Internal Medicine; Visit Provider Internal Medicine | DX: E78.01 Familial hypercholesterolemia (principal); C50.919 Malignant neoplasm of unspecified site of unspecified female breast | CPT/HCPCS: 99212 ==

== ENCOUNTER 2024-07-27 08:38 | Outpatient (REF) | payer MEDICARE, OTHER, SELFPAY ==
[2024-07-27 08:57] LABS: MANUAL DIFF FLAG NO
--- OUTSIDE RECORDS SUMMARY | 2024-07-27 09:02 | XMS_ITS | Clinical Summary ---
Author Organization [facility] Address [address] [place] [address] Care Team Providers Care Stakes Player Name Role Phone Justo Haider MD Primary Care Provider + Allergies Active Allergy Reactions Criticality Noted Date Comments Mushroom 04/29/2022 Other reaction(s): ANAPHYLAXIS-PER H&P Penicillins 06/29/2020 Medications Medication Sig Dispensed Refills Start Date End Date Status anastrozole (ARIMIDEX) 1 MG tablet 0 06/19/2020 Active risperiDONE (RisperDAL) 0.25 MG tablet 0 06/19/2020 Active simvastatin (ZOCOR) tablet 20 mg 0 06/23/2020 Active aspirin EC 81 MG tablet Take 81 mg by mouth daily. 0 Active vitamin D3 (VITAMIN D3) 25 MCG (1000 UT) tablet Take 1,000 Units by mouth daily. 0 Active psyllium (METAMUCIL) 58.6 % packet Take 1 packet by mouth daily. 0 Active Glucosamine HCl (GLUCOSAMINE PO) Take by mouth. 0 Acti ve celecoxib (CeleBREX) 200 MG capsule 0 01/22/2021 Active gabapentin (NEURONTIN) 300 MG capsule 0 01/22/2021 Active Acetaminophen Extra Strength 500 MG tablet Take 1,000 mg by mouth 3 (three) times a day. 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 04/25/2022 Knee joint stiffness, bilateral 04/25/2022 Family History Medical History Relation Name Comments Arthritis Brother Cancer Brother Heart disease Brother Arthritis Father Arthritis Mother Cancer Mother Diabetes Mother Heart disease Mother Arthritis Sister Relation Name Status Comments Brother Father Mother Sister Social History Tobacco Use Types Packs/Day Years Used Date Smoking Tobacco: Former Cigarettes Tobacco Cessation:Counseling Given: Not Answered Alcohol Use Standard Drinks/Week Comments Yes 0 (1 standard drink = 0.6 oz pur e alcohol) Sex and Gender Information Value Date Recorded Sex Assigned at Female 04/29/2022 3:30 PM EST Gender Identity Female 04/29/2022 3:30 PM EST Sexual Orientation Not on file Job Start Date Occupation Industry Not on file Not on file Not on file Last Filed Vital Signs Vital Sign Reading Time Taken Comments Blood Pressure - - Pulse - - Temperature - - Respiratory Rate - - Oxygen Saturation - - Inhaled Oxygen Concentration - - Weight 77.1 kg (170 lb) 05/27/2022 3:59 PM EDT Height 158.8 cm (5' 2.5 ) 05/27/2022 3:59 PM EDT Body Mass Index 30.6 05/27/2022 3:59 PM EDT Plan of Treatment Health Maintenance Due Date Last Done Comments Hepatitis C Screening 1955 COVID-19 Vaccine (#1) 06/27/1954 Depression Screening 1965 BMI Counseling 12/28/1971 Preventative Health Evaluation 12/28/1971 DTap / Tdap / Td (1 - Tdap) 1972 Colon Cancer Screening (Colonoscopy) 1998 Breast Cancer Screening (Mammogram) 12/28/2003 Shingrix-Zoster Vaccine (1 of 2) 12/28/2003 Fall Risk Assessment 2018 Osteoporosis Screening (DEXA Scan) 2018 Pneumococcal Vaccine (1 of 1 - PCV) 2018 Influenza Vaccine (#1) 2023 01/07/2017 RSV Adult > 60+ Yrs or Pregn ant (1 - 1-dose 75+ series) 2028 Hepatitis B Vaccines Aged Out No long er eligible based on patient's age to complete this topic RSV Ped < 20 months Aged Out No longe r eligible based on patient's age to complete this topic Care Teams Stakes Player Relationship Specialty Start Date End Date Justo Haider MD [address] [place] [address] Dr Diaz [address] [place] [address] [place] [address] PCP - General Internal Medicine 06/29/20
--- OUTSIDE RECORDS SUMMARY | 2024-07-27 09:02 | XMS_ITS | Clinical Summary ---
Author Organization [facility] Address [address] [place] [id number] Phone Care Team Providers Care Media Relations Manager Name Role Phone Justo Valerio MD Primary Care Provider [phone]- [phone] Surgical History Surgery Date Site/Laterality Comments SHOULDER SURGERY 01/14/2023 Right PROCEDURE: HISTORICAL SHOULDER SURGERY; COMMENT: RTSA Social History Tobacco Use Types Packs/Day Years Used Date Smoking Tobacco: Never Smokeless Tobacco: Never Alcohol Use Standard Drinks/Week Comments Never 0 (1 standard drink = 0.6 oz pur e alcohol) Comments Unknown Sex and Gender Information Value Date Recorded Sex Assigned at Female 02/11/2024 9:37 AM EST Legal Sex Female 9:30 PM EST Gender Identity Female 02/11/2024 9:37 AM EST Sexual Orientation Choose not to disclose 2023 9:37 AM EST Obstetrics History Last Filed Vital Signs Vital Sign Reading Time Taken Comments Blood Pressure - - Pulse - - Temperature - - Respiratory Rate - - Oxygen Saturation - - Inhaled Oxygen Concentration - - Weight 77.1 kg (170 lb) 01/14/2024 9:45 AM EDT Height 157.5 cm (5' 2 ) 01/14/2024 9:45 AM EDT Body Mass Index 31.09 01/14/2024 9:45 AM EDT Plan of Treatment Health Maintenance Due Date Last Done Comments Zoster Vaccines (1 of 2) 1972 Pneumococcal Vaccine: 50+ Years (2 of 2 - PCV) 03/30/2020 03/30/2019 Colorectal Cancer Screening: Colonoscopy 02/16/2022 Depression Screening 02/16/2022 Falls Risk Assessment 02/16/2022 Hepatitis C Screening 02/16/2022 Medicare Annual Wellness Visit 02/16/2022 Social Influencers of Health Screening 02/16/2022 COVID-19 Vaccine (7 - Moderna risk season) 2024 01/12/2024, 02/15/2022, 09/10/2021, Additional history exists Breast Cancer Screening 11/24/2025 11/25/19 24, 11/22/2022, 11/20/2021, Additional history exists RSV Immunization Adult Patients (1 - 1-dose 75+ series) 2028 DTaP,Tdap,and Td Vaccines (2 - Td or Tdap) 06/23/2030 06/23/2020 Osteoporosis Screening (Bone Density Screening) 02/24/2034 02/25/2024, 12/26/2020, 12/22/2018 Influenza Vaccine Completed 01/16/2024, , 12/25/2020, Additional history exists HIB Vaccines Aged Out No longer eligi ble based on patient's age to complete this topic HPV Vaccines Aged Out No longer eligi ble based on patient's age to complete this topic Hepatitis A Vaccines Aged Out No long er eligible based on patient's age to complete this topic Hepatitis B Vaccines Aged Out No long er eligible based on patient's age to complete this topic IPV Vaccines Aged Out No longer eligi ble based on patient's age to complete this topic MMR Vaccines Aged Out No longer eligi ble based on patient's age to complete this topic Meningococcal ACWY Vaccine Aged Out N o longer eligible based on patient's age to complete this topic Meningococcal B Vaccine Aged Out No l onger eligible based on patient's age to complete this topic RSV Immunization Patients Under 20 months Aged Out No longer eligible based on patient's age to complete this topic Varicella Vaccines Aged Out No longer eligible based on patient's age to complete this topic Procedures Procedure Name Priority Date/Time Associated Diagnosis Comments BD BONE DENSITY DXA AXIAL SKELETON Routine 02/25/2024 1:46 PM EST Age-related osteoporosis without current pathological fracture VALERIA SCREENING DIGITAL Routine 11/25/2023 1:46 PM EDT Encounter for screening mammogram for malignant neoplasm of breast from Last 3 Months or Most Recently Relevant to Health Maintenance Results * BD Bone Density DXA Axial Skeleton (02/25/2024 1:46 PM EST) Anatomical Region Laterality Modality Wrist, Hip, L-spine Bone Densito metry 02/26/2024 7:56 AM EST Impressions 02/26/2024 7:59 AM EST 1. Osteopenia. ??There has been an increase of 0.4% in bone mineral density in the lumbar spine since the prior examination of 12/26/2020. ??There has been a decrease of 1.5% in bone mineral density in the right femur and an increase of 0.1% in bone mineral density in the left femur. 2. FRAX analysis yields a 10-year probability of major osteoporotic fracture of 13.6% and a 10-year probability of hip fracture of 1.4%. Code 07888 -------- FINAL REPORT -------- Dictated By: Cliff Read Dictated Date: 02/26/2024 07:56 ET Assigned Physician: Cliff Read Reviewed and Electronically Signed By: Cliff Read Signed Date: 02/26/2024 07:59 ET Workstation ID: [id number] Transcribed By: Self Edit Transcribed Date: 02/26/2024 07:57 ET Narrative 02/26/2024 7:59 AM EST HISTORY: ??The patient is a 68-year-old postmenopausal female with clinical concern for metabolic bone disease. FINDINGS: ??Dual energy x-ray absorptiometry of the lumbar spine and femurs is performed. The mean bone mineral density at L3-4 is 1.520 gm/cm2 which is 127% of that of young normals and 145% of that of age matched controls. This yields a T- score of 2.7 and a Z-score of 3.9 and there is therefore no evidence of osteoporosis or osteopenia here. The mean bone mineral density of the femurs bilaterally is 0.948 gm/cm2 which is 94% of that of young normals and 110% of that of age matched controls. ??This yields a T-score of -0.5 and a Z-score of 0.7 and there is therefore no evidence of osteoporosis or osteopenia here. However, the T-score of the right femoral neck is -1.1 and that of the left femoral neck is -1.2 which is diagnostic of osteopenia. Procedure Note Cliff Read MD - 02/26/2024 HISTORY: The patient is a 68-year-old postmenopausal female with clinicalconcern for metabolic bone disease. FINDINGS: Dual energy x-ray absorptiometry of the lumbar spine and femursis performed. The mean bone mineral density at L3-4 is 1.520 gm/cm2 whichis 127% of that of young normals and 145% of that of age matched controls.This yields a T-score of 2.7 and a Z-score of 3.9 and there is thereforeno evidence of osteoporosis or osteopenia here. The mean bone mineral density of the femurs bilaterally is 0.948 gm/rg1vzgkk is 94% of that of young normals and 110% of that of age matchedcontrols. This yields a T-score of -0.5 and a Z-score of 0.7 and there istherefore no evidence of osteoporosis or osteopenia here. However, theT-score of the right femoral neck is -1.1 and that of the left femoralneck is -1.2 which is diagnostic of osteopenia. IMPRESSION: 1. Osteopenia. There has been an increase of 0.4% in bone mineral densityin the lumbar spine since the prior examination of 12/26/2020. There hasbeen a decrease of 1.5% in bone mineral density in the right femur and anincrease of 0.1% in bone mineral density in the left femur. 2. FRAX analysis yields a 10-year probability of major osteoporoticfracture of 13.6% and a 10-year probability of hip fracture of 1.4%. Code 25989 -------- FINAL REPORT -------- Dictated By: Cliff Read Dictated Date: 02/26/2024 07:56 ET Assigned Physician: Cliff Read Reviewed and Electronically Signed By: Cliff Read Signed Date: 02/26/2024 07:59 ET Workstation ID: [id number] Transcribed By: Self Edit Transcribed Date: 02/26/2024 07:57 ET us Justo Valerio MD IMG DXA PROCEDURES Final R esult * VALERIA SCREENING DIGITAL (11/25/2023 1:46 PM EDT) Anatomical Region Laterality Modality Mammography 11/25/2023 9:39 AM EDT Narrative 11/25/2023 1:46 PM EDT [facility] Diagnostic Imaging Department [address] [place] [id number] Patient: ??MALUARIN GARCIA ?/Age/Sex: 1955 - 67 - F Unit#: ??[id number] ? Location/Status: ??SPDIMAM/REG CLI ? Mnemonic/Ordering Site: ??DIGSC/SPMAM Ordering Physician: ??JUSTO VALERIO MD Valeria Screening Digital - 11/25/23 - 1010 Report Status:Signed EXAM: Valeria Screening Digital EXAM DATE AND TIME: 11/25/2023 10:11 AM HISTORY: ??Screening. Personal history of left breast carcinoma treated with lumpectomy in 2016 followed by radiation treatment. Mother had breast carcinoma at age 55. COMPARISON: ??11/22/22, 11/20/21, 11/17/20 TECHNIQUE: Bilateral digital breast tomosynthesis was performed in the CC and MLO projections. Computer aided detection with iCAD Double Fusion 3D 3.1 was employed. TISSUE DENSITY: b. There are scattered areas of fibroglandular density. FINDINGS: Mild focal asymmetry and architectural distortion are again seen in the anteromedial left breast, accompanied by surgical clips, consistent with the lumpectomy scar. There has been no significant change. No suspicious masses, grouped microcalcifications, or developing architectural distortion are seen. Vascular calcification is present. IMPRESSION: Stable mammographic appearance of the breasts, including lumpectomy changes in the left breast. ??No evidence of malignancy is seen. A negative mammogram in the presence of a clinically suspicious palpable abnormality does not preclude the possibility of malignancy or alter the indications for biopsy. BI-RADS: ??Category 2: Benign RECOMMENDATION(S): 1: Routine screening mammogram BILATERAL in 1 year. [facility] [address] [place] [address] Dictating Physician: ??YUDELKA ALICEA MD Electronically Signed by: ??YUDELKA ALICEA MD Dic Date/Time: ??11/25/23 1345 Sign date/Time: ??11/25/23 1346 Procedure Note Yudelka Alicea MD - 12/31/2023 [facility] Diagnostic Imaging Department [address] [place] [address] Patient: ARIN MOORE /Age/Sex: 1955 - 67 - F Unit#: [id number] [facility]Ordering Site: [facility] Ordering Physician: JUSTO VALERIO MD [facility] Screening Digital - 11/25/23 - 1010 Report Status:Signed EXAM: [facility] Screening Digital EXAM DATE AND TIME: 11/25/2023 10:11 AM HISTORY: Screening. Personal history of left breast carcinoma treatedwith lumpectomy in 2016 followed by radiation treatment. Mother had breastcarcinoma at age 55. COMPARISON: 11/22/22, 11/20/21, 11/17/20 TECHNIQUE: Bilateral digital breast tomosynthesis was performed in the CCand MLO projections. Computer aided detection with Lytics 3D 3.1was employed. TISSUE DENSITY: b. There are scattered areas of fibroglandular density. FINDINGS: Mild focal asymmetry and architectural distortion are again seen in the anteromedial left breast, accompanied by surgical clips, consistent withthe lumpectomy scar. There has been no significant change. No suspicious masses, grouped microcalcifications, or developingarchitectural distortion are seen. Vascular calcification is present. IMPRESSION: Stable mammographic appearance of the breasts, including lumpectomychanges in the left breast. No evidence of malignancy is seen. A negative mammogram in the presence of a clinically suspicious palpable abnormality does not preclude the possibility of malignancy or alter the indications for biopsy. BI-RADS: Category 2: Benign RECOMMENDATION(S): 1: Routine screening mammogram BILATERAL in 1 year. 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 Health Care Decision (hx) 01/24/2021 AD SHELDON DIRECTIVE Health Care Decision (hx) 01/24/2021 AD SHELDON DIRECTIVE Health Care Decision (hx) 01/24/2021 AD SHELDON DIRECTIVE Health Care Decision (hx) 01/24/2021 AD SHELDON DIRECTIVE Health Care Decision (hx) 01/24/2021 AD SHELDON DIRECTIVE Health Care Decision (hx) 01/24/2021 AD SHELDON DIRECTIVE Health Care Decision (hx) 01/24/2021 AD SHELDON DIRECTIVE Health Care Decision (hx) 01/24/2021 AD SHELDON DIRECTIVE Health Care Decision (hx) 01/24/2021 AD SHELDON DIRECTIVE Health Care Decision (hx) 01/19/2021 AD SEHLDON DIRECTIVE Health Care Decision (hx) 01/19/2021 AD SHELDON DIRECTIVE Health Care Decision (hx) 01/19/2021 AD SHELDON DIRECTIVE Health Care Decision (hx) 01/19/2021 AD SHELDON DIRECTIVE Health Care Decision (hx) 01/19/2021 AD SHELDON DIRECTIVE Health Care Decision (hx) 01/19/2021 AD SHELDON DIRECTIVE Health Care Decision (hx) 01/19/2021 AD SHELDON DIRECTIVE Health Care Decision (hx) 01/19/2021 AD SHELDON DIRECTIVE Health Care Decision (hx) 01/19/2021 AD SHELDON DIRECTIVE Care Teams Media Relations Manager Relationship Specialty Start Date End Date Justo Valerio MD [address] [place] [address] PCP - General Internal Medicine 06/29/20
[2024-07-27 09:10] LABS: Basophils Absolute Auto 0.1 X10*3/uL (0.0-0.2); Basophils Percent Auto 1.1 % (0-2); Eosinophils Absolute Auto 0.2 X10*3/uL (0.0-0.4); Eosinophils Percent Auto 3.4 % (0-4); Hematocrit 42.5 % (37.0-47.0); Hemoglobin 14.5 g/dl (12.0-16.0); Imm Gran Abs Auto 0.01 X10*3/uL (0.00-0.03); Imm Gran Pct Auto 0.2 % (0.0-0.4); Lymphocytes Absolute Auto 1.9 X10*3/uL (1.2-4.9); Lymphocytes Percent Auto 42.6 % (20-40); Mean Corpuscular HGB Conc 34.1 g/dl (31.0-35.0); Mean Corpuscular Hemoglobin 32.7 pg (27.0-33.0); Mean Corpuscular Volume 95.9 fL (80.0-98.0); Mean Platelet Volume 9.2 fL (9.4-12.3); Monocytes Absolute Auto 0.5 X10*3/uL (0.1-1.2); Monocytes Percent Auto 10.4 % (2-11); Neutrophils Absolute Auto 1.9 x10*3/uL (2.0-8.3); Neutrophils Percent Auto 42.3 % (45-73); Platelet Count 248 X10*3/uL (160-400); Red Blood Count 4.43 X10*6/uL (4.20-5.50); Red Cell Distribution Width 12.8 % (11.0-16.0); White Blood Count 4.4 X10*3/uL (4.8-10.8)
[2024-07-27 09:29] LABS: Estimated Average Glucose 111 mg/dL; Hemoglobin A1C 137.9792 umol/L; Hemoglobin A1c % 5.5 % (<6.0); Total Hemoglobin (HGBA1C) 3793.6503 umol/L
[2024-07-27 09:46] LABS: Alanine Aminotransferase 21 U/L (0-31); Albumin Level 4.1 g/dL (3.5-5.0); Anion Gap 14 (12-20); Aspartate Amino Transferase 22 U/L (5-31); Bilirubin Direct 0.1 mg/dL (0.0-0.5); Bilirubin Total 0.5 mg/dL (0.0-1.0); Blood Urea Nitrogen 16 mg/dL (9-16); C Reactive Protein 0.32 mg/dL (< or = 0.50); Calcium 9.5 mg/dL (8.4-10.2); Carbon Dioxide 26 mmol/L (22-29); Chloride 105 mmol/L (96-108); Cholesterol 181 mg/dL (<200); Erythrocyte Sedimentation Rate 13 MM/HR (0-20); Estimated Glomerular Filt Rate > 60; Glucose Fasting 102 mg/dL (60-99); HDL Cholesterol 57 mg/dL (>40); LDL Cholesterol Calculated 108 mg/dL (<100); Magnesium 2.3 mg/dL (1.6-2.6); Potassium 4.1 mmol/L (3.3-5.1); Sodium 141 mmol/L (135-145); Total Protein 6.9 g/dL (6.5-8.0); Triglycerides 81 mg/dL (<150)
[2024-07-27 10:14] LABS: Folate 14.6 ng/mL (> or = 4.0); TSH reflex Free T4 1.65 uIU/mL (0.32-4.0); Vitamin B12 743 pg/mL (200-900); Vitamin D 25-OH Total 50.1 ng/mL (>30)
[2024-07-27 12:50] LABS: Alkaline Phosphatase 85 U/L (39-117)
== END 2024-07-27 08:39 | disposition home or self-care (01) ==
LOC: HO.LAB 08:38
PROVIDERS: PCP Internal Medicine; Visit Provider Physician Assistant Medical
DX: Z00.00 Encounter for general adult medical examination without abnormal findings (principal); Z13.1 Encounter for screening for diabetes mellitus; Z13.6 Encounter for screening for cardiovascular disorders
CPT/HCPCS: 36415; 80053; 80061; 80076; 82248; 82306; 82607; 82746; 83036; 83735; 84443; 85025; 85652; 86140

== ENCOUNTER 2024-07-29 15:14 | Outpatient (AMB) | payer MEDICARE, OTHER, SELFPAY ==
[2024-07-29 15:21] VITALS: BP 110/72; PULSE 87; O2SAT 97; BMI 31.0
--- NOTE | 2024-07-29 15:22 | AM.OFFVISMDC ---
Intake Vital Signs 07/29/24 15:21 Height 5 ft 2 in Weight 169 lb 4 oz BMI 31.0 BP 110/72 Blood Pressure Location Lt brachial Position Sitting Pulse 87 Pulse Source Pulse Oximeter Pulse Oximetry (%) 97 Oxygen Delivery Method Room Air Intake Visit Reasons: Annual Wellness Visit Powder Core Tester Required: No Accompanied by: Self / Same As Patient Allergies mushroom [MUSHROOM] Allergy (Severe, Verified 07/29/24 15:34) ANAPHYLAXIS penicillamine Allergy (Unknown, Verified 07/29/24 15:34) Unknown penicillin V Allergy (Unknown, Verified 07/29/24 15:34) hives Medication List - Last Reconciled 07/29/24 by Jelena Dominique PA-C aspirin 81 mg PO DAILY cholecalciferol (vitamin D3) 25 mcg PO DAILY cyclobenzaprine 10 mg PO BEDTIME escitalopram oxalate 10 mg PO DAILY flaxseed oil 1,000 mg PO BID vikdywwrtrz-wlziqtyyi-jxu C-Mn 500-400 mg (Glucosamine-Chondroitin Complex) caps PO multivitamin caps PO PRN risperidone 0.25 mg PO DAILY simvastatin 20 mg PO DAILY Do you need a note to return to daycare/school/sports/work: No HPI HPI Comments History of Present Illness Details Patient is here for an Annual Wellness Visit today. The patient is a 68-year-old female presenting for her annual wellness visit and discussion regarding end-of-life preferences. During her visit, she specified that she would only prefer short-term use of intubation and ventilation if medically necessary, particularly in cases like pneumonia impacting respiratory function. This choice is echoed in her stance on CPAP machines and dialysis, seeking to avoid long-term reliance unless imperative. Her examination involved reviewing blood work with a lipid panel showing an LDL of 108 and a hemoglobin A1c of 5.5, indicating potential progression towards prediabetes, though she remains just below the diagnostic threshold. The white blood cell count remains consistently low at 4.4; however, her kidney function is within normal parameters. She acknowledged the risk of kidney issues when using certain antibiotics for urinary tract infections while noting her intention to maintain hydration and cautious antibiotic use. Recent preventive measures include a mammogram in October 2023, a bone density scan in February 2024, and an eye examination last summer. She reports no recent falls post-last year's incident and engages actively with daily tasks without assistance. Social History - Exercises 6 days a week for 20 minutes per session. - Lives alone and independently manages daily activities. - Regular annual exams include mammograms, bone density scans, and eye exams. - Denies current tobacco or alcohol use. - Utilizes safety features at home, including grab bars and raised toilet seats. - Eats a balanced diet but acknowledges recent less healthy eating habits. - Engages in regular dental and periodontal care. List of all patient's Health Care Provider's PCP- Dr. Sim Oncology- [facility] pollo rey PA-C name there Special Education Professional- Dr Wilkes Therapist- Starla Lewis at [facility] Orthopedic- [facility] Orthopedics Dentist- Dr. Iverson? Psychiatrist is Dr. Coleman Reviewed past medical history- yes Reviewed surgical / hospitalization history- yes Reviewed family history- yes Reviewed current medications- yes Review all current providers patient is actively being followed by- yes Risk Factors Do exercise? yes How many days per week? 6 Minutes per episode question? 20 mins Do you garcía regularly? yes Do go to the dentist yearly? yes or every 6 months? Yes Do use a seatbelt in the vehicle? Yes Sexual health: Not sexually active at this time Home safety Throw rugs? No Grab bars? Yes, in the shower and going into the house there is a special bar Raised toilet seat? Yes Working smoke detectors? Yes Fall risk assessment Fall risk? low fall risk Have you had any falls with injuries in the past year? 1 fall in backyard last fall Have you had 2 or more falls in the past year? no Fall risk assessment: low Visit History If diabetic, last diabetic eye exam: Date? Patient not a diabetic Last hospitalization: If any? No recent hospitalizations in the past year Additonal Services needed/Case Management Referrals? Medical referrals? GI for colonoscopy no other referrals required per patient End of life planning Discussed advanced directives- Yes Member did not wish to discuss above? No Advanced directives on file? yes done today Discussed wishes expressed in advanced directives? yes Encouraged member to inform others about care preferences. [facility] Medical History (Updated 07/29/24 @ 16:47 by Jelena Dominique PA-C) Hyperlipidemia LDL goal <100 Full code status Encounter for annual wellness exam in Medicare patient Spondylosis Annual physical exam History of left breast cancer Breast cancer Frozen shoulder Arthritis Hyperlipidemia Surgical History History of reverse total replacement of right shoulder joint History of colonoscopy History of cataract surgery History of total right knee replacement History of knee replacement procedure of left knee History of appendectomy History of oophorectomy History of lumpectomy History of hernia surgery Family History Mother Breast cancer, Onset Age: 52 Brother Renal cancer, Onset Age: 33 Maternal Aunt Breast cancer, Onset Age: 80 Social History Housing: House Alcohol intake: current Alcohol intake frequency: a few times a month Alcohol type: beer Patient Tobacco Use Status: Former Tobacco user Tobacco use type: Cigarette e-Cigarette/Vaping Use: Never Used Second Hand Smoke Exposure: Yes service: No Current occupational status: retired Cognitive needs: No Hearing needs: No Vision needs: Yes (glasses) Questionnaire Medicare Wellness Checkup [age] What gender do you identify with?: female During the past 4 weeks, how much have you been bothered by emotional problems such as feeling anxious, depressed, irritable, sad or downhearted, and blue?: slightly During the past 4 weeks, has your physical & emotional health limited your social activities with family, friends, neighbors, or groups?: not at all During the past 4 weeks, how much bodily pain have you generally had?: mild pain During the past 4 weeks, was someone available to help you if you needed & wanted help?: yes, as much as I wanted During the past 4 weeks, what was the hardest physical activity you could do for at least 2 minutes?: moderate Can you get to places out of walking distance without help? (For eg., can you travel alone on buses, taxis or drive your car?): Yes Can you go shopping for groceries or clothes without someone's help?: Yes Can you prepare your own meals?: Yes Can you do your housework without help?: Yes Because of any health problems, do you need the help of another person with your personal care needs such as eating, bathing, dressing or getting around the house?: No Can you handle your own money without help?: Yes During the past 4 weeks, how would you rate your health in general?: very good During the past 4 weeks how have things been going for you?: pretty well Are you having difficulties driving your car?: no Do you always fasten your seat belt when you are in a car?: yes, usually During past 4 weeks, have you been bothered by the following: never: Falling or dizzy when standing up, Sexual problems?, Trouble eating well?, Teeth or denture problems? and Problems using the telephone? and seldom: Tiredness or fatigue? Have you fallen 2 or more times in the past year?: No Are you afraid of falling?: No Are you a smoker?: no During the past 4 weeks, how many drinks of wine, beer, or other alcoholic beverages did you have?: 1 drink or less per week Do you exercise for about 20 minutes 3 or more times a week?: yes, most of the time Have you been given information to help with the following?: yes: Hazards in your house that might hurt you? and yes: Keeping track of your medications? How often do you have trouble taking medicines the way you have been told to take them?: I always take medicine as prescribed How confident are you that you can control & manage most of your health problems?: very confident What is your race?: White Mini Mental State Exam (MMSE) Orientation What is the (year) (season) (date) (day) (month)?: year, season, date, day and month Where are we (state) (county) (town or city) (hospital) (floor)?: state, county, town or city, hospital/clinic and floor Registration Name of 3 unrelated objects clearly and slowly, then ask patient to repeat all 3 of them. (1st repeat determines score. Make sure they can repeat all three): object 1, object 2 and object 3 Attention & Calculation (CHOOSE ONE) Ask pt to begin with 100 & count backward by 7. Stop after 5 repeats. If pt cannot ask them to spell the word WORLD backward.: 93, 86, 79, 72 and 65 Spell WORLD backwards (DLROW): 5 letters Recall Ask patient to repeat the 3 items from question #3.: object 1, object 2 and object 3 Language Show patient a wristwatch & ask what it is. Repeat for pencil.: watch and pencil Ask the patient to repeat the phrase 'No ifs, ands, or buts' after you.: correct Ask the patient to 'take a piece of paper with their right hand' 'fold paper in half' 'place paper on floor': take paper in right hand, fold paper in half and place paper on floor Print the sentence 'CLOSE YOUR EYES' on a piece. If patient actually closes eyes then score.: followed written direction Give patient a blank piece of paper & ask to write a sentence. Score if it contains a noun & verb.: sentence contains subject and verb Ask patient to copy figure of intersecting pentagons exactly. Score if all 10 angles & 2 intersects are included.: all 10 angles present & 2 are intersected Score Score: 35 Activity of Daily Living Bathing - sponge bath, tub bath or shower: receives no assistance (gets in/out by self, if usual bathing means Dressing - getting clothes from closets & drawers, including inner/outer garments & fasteners.: gets clothes & gets completely dressed without help Toileting - going to the 'toilet room' for urine/bowel elimination & cleaning self/arranging clothes: goes to toilet room, cleans self, arranges clothes without help Transfer: moves in & out of bed and chair without help (may use support object) Continence: controls urination/bowel movements completely by self Feeding: feeds self without help Total Score: 0 Information obtained from: patient Using telephone: independent Traveling: independent Shopping: independent Preparing meals: independent Housework: independent Taking medicine: independent Managing money: independent PHQ-9 Over the last 2 weeks, how often have you been bothered by any of the following problems? 1. Little interest or pleasure in doing things: not at all 2. Feeling down, depressed, or hopeless: not at all 3. Trouble falling or staying asleep, or sleeping too much: not at all 4. Feeling tired or having little energy: several days 5. Poor appetite or overeating: not at all 6. Feeling bad about yourself - or that you are a failure or have let yourself or your family down: not at all 7. Trouble concentrating on things, such as reading the newspaper or watching television: not at all 8. Moving or speaking so slowly that other people could have noticed. Or the opposite - being so fidgety or restless that you have been moving around a lot more than usual: not at all 9. Thoughts that you would be better off or of hurting yourself in some way: not at all Total score: 1 Depression Screening Interpretation: Negative Depression Screening Done: Yes 88893 - PHQ-9 Billing: Yes Source: Developed by Drs. Guy Lewis, Hermelinda Ruth, Kamaljit Tam and colleagues, with an educational samantha from [employer]. PHQ-2/PHQ-9 PHQ-2 Over the last 2 weeks, how often have you been bothered by any of the following problems? 1. Little interest or pleasure in doing things: not at all 2. Feeling down, depressed, or hopeless: not at all Total score: 0 If score is 3 or greater, continue 3. Trouble falling or staying asleep, or sleeping too much: not at all 4. Feeling tired or having little energy: several days 5. Poor appetite or overeating: not at all 6. Feeling bad about yourself - or that you are a failure or have let yourself or your family down: not at all 7. Trouble concentrating on things, such as reading the newspaper or watching television: not at all 8. Moving or speaking so slowly that other people could have noticed. Or the opposite - being so fidgety or restless that you have been moving around a lot more than usual: not at all 9. Thoughts that you would be better off or of hurting yourself in some way: not at all Total score: 1 0-4 None-Minimal, 5-9 Mild, 10-14 Moderate, 15-19 Moderately Severe, 20-27 Severe Source: Developed by Drs. Guy Lewis, Hermelinda Ruth, Kamaljit Tam and colleagues, with an educational samantha from [employer]. Thrive Questionnaire Date Thrive assessed: 07/31/23 BLAZE-7 AMB Questionnaire BLAZE-7 Date BLAZE - 7 assessed: 07/31/23 Source: Developed by Drs. Guy Lewis, Hermelinda Ruth, Kamaljit Tam and colleagues, with an educational samantha from [employer]. Review of Systems Const Details: - General: Denies weight change, fatigue. - Cardiovascular: Denies palpitations, chest pain. - Respiratory: Denies shortness of breath, cough. - Gastrointestinal: Denies nausea, vomiting, diarrhea. - Genitourinary: Denies incontinence, painful urination. - Musculoskeletal: Denies joint pain, muscle weakness. - Neurological: Denies dizziness, changes in memory. - Endocrine: Denies excessive thirst, urination. - Hematologic/Lymphatic: Denies bruising, bleeding. - Psychiatric: Denies anxiety, depression. All systems reviewed & are unremarkable except as noted in HPI and below Physical Exam Vital Signs: Last Vital Signs Pulse 87 07/29/24 15:21 BP 110/72 07/29/24 15:21 Pulse Ox 97 07/29/24 15:21 Oxygen Delivery Method Room Air 07/29/24 15:21 BMI result Body Mass Index 31.0 Const Other: Appearance: Alert. Oriented X3. No acute distress. Head: Normal external exam. Normocephalic. Atraumatic. Eyes: Pupils are equal, round, and reactive to light. Extraocular movements intact. Conjunctiva and sclera normal. Eyelids normal. Ears: External auditory canal normal. Tympanic membranes normal. Throat: Pharynx normal. Uvula midline. Moist mucous membranes. Neck: Normal inspection. Neck supple. Full range of motion. No adenopathy. Thyroid Normal. No meningeal signs. No neck mass noted. Cardiovascular: Normal heart rate and rhythm. Heart sound normal. No murmurs noted. Pulses normal throughout. Respiratory: No respiratory distress. Painless inspiration. Breath sounds normal. No wheezes/rales/rhonchi noted. Chest nontender. No accessory muscle usage noted or decreased air movement noted. Abdomen: Soft and nontender. Bowel sounds normal in all 4 quadrants. No distention noted. No organomegaly noted. No visible injury noted. Back: No costovertebral angle tenderness. Full range of motion noted. Skin: Skin warm and dry. Normal skin color. Normal skin turgor. No rashes/lesions/lacerations noted. Extremities: No lower extremity edema. Extremities exhibit normal range of motion. Extremities nontender. Neuro: Oriented X 3. No motor deficit. No sensory deficit. Reflexes normal. HEENT Other: Hearing screening Whisper test- normal hearing screening Eyes Other: vision screening- normal vision exam Other: urinary incontinence? None Neuro Other: balance patient has normal balance Romberg- patient had negative Romberg test tandem walk test- patient able to tandem walk test walk-in turned test- patient had a normal walk and turn test rise from sit to stand- patient able to get up from the chair without holding the rails of the chair without any difficulty Results Reviewed Results Reviewed: - Labs: - Lipid panel: LDL 108. - White blood cell count: 4.4. - Hemoglobin A1c: 5.5. - Glucose: 102. - Diagnostics: - Mammogram: October 2023. - Bone Density Scan: February 2024. - Glaucoma screening: Last summer. Assessment & Plan Assessment & Plan (1) Encounter for annual wellness exam in Medicare patient: Code(s): Z00.00 - Encounter for general adult medical examination without abnormal findings (2) Full code status: Code(s): Z78.9 - Other specified health status (3) Hyperlipidemia LDL goal <100: Code(s): E78.5 - Hyperlipidemia, unspecified (4) Leukopenia: Code(s): D72.819 - Decreased white blood cell count, unspecified Plan Plan Patient was informed and verbally consented to the use of an ambient scribe for clinic note documentation during this visit. 1. Patient is a full code for resuscitation I confirmed the patient's end-of-life preferences concerning ventilation and intubation. Interventions are planned short-term for conditions like pneumonia only. 2. Hyperlipidemia We reviewed her LDL levels, which are slightly elevated. I recommended lifestyle changes, including diet and exercise, to improve this profile. 3. Chronic Low White Blood Cell Count The chronic low white blood cell count requires no immediate intervention due to a lack of infectious symptoms. I reviewed the patient's current health status and clarified her end-of-life care preferences, emphasizing temporary use of life-support measures when necessary. Discussions included lipid management, given an LDL of 108, and the potential progression towards diabetes with an A1c of 5.5. Chronic low white blood cell count was acknowledged, although currently not problematic. I highlighted lifestyle modifications such as diet and exercise to manage weight and health risks. Finally, we planned a referral for her due colonoscopy and discussed other routine care and safety measures to maintain her health. Orders: Referrals Gastroenterology Referral Z12.11 - Encounter for screening for malignant neoplasm of colon Patient Instructions: - Exercise regularly: 20 minutes, 6 days a week. - Maintain a healthy diet to manage cholesterol and weight. - Stay hydrated, especially if taking antibiotics. - Follow your MOLST form with Full code status as your preferences and ensure they are known. - Attend all scheduled wellness check-ups and follow-ups. - Verify smoke detectors are functional and use grab bars for safety. Quality Reporting (2019) Depression/Bipolar (159/160/161/177) PHQ-9: Total score: 1 Coding Level of Care Code Medicare First (G0438) Est Pt Level 4 (99652) Diagnoses Encounter for annual wellness exam in Medicare patient Z00.00 Full code status Z78.9 Hyperlipidemia LDL goal <100 E78.5 Leukopenia D72.819 CPT Codes Advance Care Planning - Time spent: 16-45 minutes ([id number]) Additional Codes PHQ-9 - 78809 - PHQ-9 Billing: Yes ([id number]) Time Spent (min) 60 Advance Care Planning Advance Care Planning discussion: Completed/Scanned Date of discussion: 07/29/24 Forms completed: Health Care Proxy and MOLST Time spent: 16-45 minutes Actual minutes spent: 25 Did not discuss due to Cultural/Spiritual beliefs: No
--- OUTSIDE RECORDS SUMMARY | 2024-07-29 15:48 | XMS_ITS | Data Portability ---
Author Organization [place] [facility] Maura Mckeon [place] Address [address] [place] [address] Care Team Providers Care Auto Porter Name Role Phone IMANEMILIO Primary Care Provider Assessment Encounter Date Assessment Date Assessment LastModified by Organization Details LastModified Time 04/10/2023 04/10/2023 Pleasant 67-year-old female status post BL knees. R-TKA 05/25/21. L-TKA 01/19/2021. She is doing well clinically. She will continue with her stretching exercise regimen. We will continue antibiotics until 05/26/2023 after which she can discontinue per Dr. Calix's protocol. If her dentist wishes to continue antibiotic prophylaxis they can take over management. Follow-up visit 5-year recall on both knees. Should she have any orthopedic needs should they arise she should contact her office for the appropriate referral to the proper specialist. She agrees with this plan Patient was seen and evaluated by Roberto Whiting PA-C in indirect conjuction with Documenting Provider: Tito Calix MD . He/She agrees with history, physical examination, tests/diagnostic imaging, and treatment plan. Additional treatment plan discussed with the patient (only initiated if in boldface font) otherwise not applicable. Treatment may include the following; - Provider focused nonsteroidal anti-inflammator y regimen (discussed were the pros, cons, benefits and risks as well as any black box warnings) in patients over 60 years old they should be very cautious in taking these medications due to potential decreased kidney function and or elevated blood pressure. - Analgesic pain medication for pain suppression (discussed were the pros, cons, benefits and risks as well as any black box warnings) - The use of topical pain relieving medication were discussed - The use of ice to decrease inflammation and pain - The use of assistive ambulatory devices for ambulation and fall prevention - Formal specific guided physical therapy program I reviewed my findings at length with the patient today. ? ? ?We discussed the nature and etiology of this problem along with current treatment options. We discussed the expected course and outcomes and what to expect. We also discussed risks and benefits. ? ? ? All of their questions were answered today, and there was exhibited understanding and comprehension of all that was discussed. Time Spent: 10 minutes were spent reviewing previous imaging and charting. ? ? ?10 minutes were spent obtaining patient history. ? ? ?5 minutes were spent on physical exam. ? ? ?5? ? ?minutes were spent explaining diagnosis and assessment. Today's documentation was made using voice recognition software. This note may contain grammatical errors secondary to the software. Not available 04/01/2023 07:53:03 Plan of Treatment Reminders Order Date Submit Date Provider Last Modified By Organization Details Last Modified Time Details Appointments None record ed. Lab None record ed. Referral None record ed. Procedures None record ed. Surgeries None record ed. Imaging XR, knee, 3 view 024 04/10/19 24 [email or web address] [facility], [address], [place], [address], 4 13:30:25 XR, knee, 3 view 024 04/10/19 24 [email or web address] [facility], [address], [place], [address], 4 13:30:25 Medication Orders None record ed. Patient TargetsNo targets recorded. Patient Instructions Encounter Date Encounter Id Patient Instructions Last Modified By Organization Details Last Modified Time 04/10/2023 [id number] Well-seated well-positioned and bilateral knee replacements without acute bony abnormality no obvious signs of loosening. Not available 04/11/2023 08:06:37 Reason for Referral None Reported. Procedures Surgical History Date Name Laterality Status Provider Name and Address Organization Details Recorded Time hernia repair completed [facility] 04/10/2023 15:26:19 tonsilectomy/bruno oids completed [facility] - [facility], [facility] 04/10/2023 15:26:27 procedure on ovary completed [facility], [facility] 04/10/2023 15:26:41 Appendectomy completed [facility], [facility] 04/10/2023 15:26:49 repair of inguinal hernia completed [facility], 04/10/2023 15:27:02 Imaging Results None recorded. Procedure Notes None recorded. Medical Equipment None Reported. Allergies Allergen ID Allergen Name Allergen Category Reaction Reaction Severity Criticality Documentation Date Start Date Code Code System Note Provider Name and Address Organization Details Recorded Time 48149 Product containin g penicilli n (product) medicatio n Not available Not available Not available 04/10/2023 18419 8001 SNOMED [facility], [facility] 15:01:20 Medications Name Sig Start Date Stop Date Status Note LastModified by Organization Details LastModified Time clindamycin HCl 300 mg capsule TAKE 2 CAPSULES BY MOUTH 1 HOUR PRIOR TO DENTAL APPOINTME NT. active Not Available Not Available No t Available risperidone 0.25 mg tablet active Not Available Not Available Not Available acetaminoph en 500 mg tablet TAKE 2 TABLETS BY MOUTH EVERY 8 HOURS FOR MILD PAIN 04/10 completed Not Available Not Available Not Available hydromorpho ne 2 mg tablet TAKE 1/2 TABLET BY MOUTH EVERY 4 TO 6 HOURS NEEDED FOR PAIN 04/10 completed Not Available Not Available Not Available simvastatin 20 mg tablet active Not Available Not Available Not Available ibuprofen 600 mg tablet TAKE 1 TABLET BY MOUTH EVERY 8 HOURS NEEDED FOR PAIN. MAX 2400 MG DAILY 04/10 completed Not Available Not Available Not Available escitalopra m 10 mg tablet active Not Available Not Available Not Available Senna Plus 8.6 mg-50 mg tablet TAKE 2 TABLETS BY MOUTH AT BEDTIME NEEDED FOR CONSTIPAT ION 04/10 completed Not Available Not Available Not Available Vitals Date Recorded Body height Body mass index (BMI) Body weight Provider Name and Address Organization Details Last Updated DateTime 04/10/2023 157.48 cm 30.2 kg/m2 05493.74 g [facility] 04/10/2023 15:22:10 Social History None recorded. Functional Status Question Answer Note LastModified by Organizat ion Details LastModified Time How many times per week do you consume alcohol? 1-2 times per week Information not available 04/10/2023 Do you use any illicit or recreational drugs? No Information not available 04/10/2023 Do you or have you ever used any other forms of tobacco or nicotine? No Information not available 04/10/2023 What is your level of alcohol consumption? Occasional Information not available 04/10/2023 Mental Status None recorded. Family History Relationship Description Onset Age of this Age Resolved Age Notes LastModified by Organization Details LastModified Time Mother Arthritis Not available 04/10/2023 15:24:19 Mother Family history of malignant neoplasm Not available 2023 15:24:26 Mother Diabetes mellitus Not available 2023 15:24:49 Mother Heart disease Not available 2023 15:25:31 Father Arthritis Not available 04/10/2023 15:24:19 Sister Arthritis Not available 04/10/2023 15:24:19 Brother Arthritis Not availabl e 04/10/2023 15:24:19 Brother Family history of malignant neoplasm Not available 2023 15:24:26 Brother Heart disease Not available 2023 15:25:31 Brother Hypercholest erolemia Not available 2023 15:26:07 Medical History Condition Response Cancer Y Rheumatoid Arthritis Y Osteopenia Y Gynecological HistoryNo gynecological history recorded. Obstetrics History GPAL:G 0 P 0 0 0 0 Past Encounters Encounter ID Performer Location Encounter Start Date Encounter Closed Date Diagnosis/Indication Diagnosis SNOMED-CT Code Diagnosis ICD10 Code Diagnosis Note [id number] [address] [facility] [address] 04/10/2023 14:53:56 04/10/2023 15:37:55 History of right total knee replacement 8401974620 924626 Z96.651 History of left total knee replacement 4631621489 130676 Z96.652 Health Concerns Section Related Observation LastModified by Organization Detai ls LastModified Time None Recorded Concern Status LastModified by Organization Details LastModified Time None Recorded Advance Directives Directive None Recorded Payers Encounter Date Sequence Insurance Name Policy Number Policy Vega Covered Member ID Vega Member ID Guarantor Name 04/10/[address] [facility] - PLAN 1 (MEDICARE SUPPLEMENT) [id number] Paulette Moore [id number] Paulette Moore 04/10/2023 1 MEDICARE [place]: [employer] Paulette Moore [id number] Paulette Moore Notes Date Note Type Note Provider Name and Address Organization Details Recorded Time 04/10/2023 text/html BL knees. R-TKA 05/25/21. L-TKA 01/19/2021. xrays today Pleasant 67-year-old female here for follow-up on her bilateral knee replacements on the above-noted dates. Patient states she is doing well she does her stretching exercises. She takes her antibiotic prophylaxis prior to dental work. No other complaints at this time. ROBERTO WHITING PA-C [address] [place] [address],[facility] [address], [place], [address], [place] [facility], 04/11/2023 08:06:58 OBGyn Episode No OBEpisode recorded.
--- OUTSIDE RECORDS SUMMARY | 2024-07-29 15:48 | XMS_ITS | Clinical Summary ---
Author Organization [facility] Address [address] [place] [address] Care Team Providers Care Bending Frame Operator Name Role Phone Justo Haider MD Primary [...] age to complete this topic Care Teams Bending Frame Operator Relationship Specialty Start Date End Date Justo Haider MD [address] [place] [address] Dr Diaz [address] [place] [address] [place] [address] PCP - General Internal Medicine 06/29/20
--- OUTSIDE RECORDS SUMMARY | 2024-07-29 15:48 | XMS_ITS | Clinical Summary ---
Author Organization [facility] Address [address] [place] [phone] Phone Care Team Providers Care Upholstered Goods Crafter Name Role Phone Justo Valerio MD Primary Care Provider [phone]- [phone] Surgical History Surgery Date Site/Laterality Comments SHOULDER [...] probability of hip fracture of 1.4%. Code 15074 -------- FINAL REPORT -------- Dictated By: Cliff Read Dictated Date: 02/26/2024 07:56 ET Assigned Physician: Cliff Read Reviewed and Electronically Signed By: Cliff Read Signed Date: 02/26/2024 07:59 ET Workstation ID: [id number] Transcribed By: Self Edit Transcribed Date: 02/26/2024 [...] density of the femurs bilaterally is 0.948 gm/[id number] is 94% of that of young normals [...] probability of hip fracture of 1.4%. Code 80342 -------- FINAL REPORT -------- Dictated By: Cliff Read Dictated Date: 02/26/2024 07:56 ET Assigned Physician: Cliff Read Reviewed and Electronically Signed By: Cliff Read Signed Date: 02/26/2024 07:59 ET Workstation ID: [id number] Transcribed By: Self Edit Transcribed Date: 02/26/2024 07:57 ET us Justo Valerio MD IMG DXA PROCEDURES Final R esult * VALERIA SCREENING DIGITAL (11/25/2023 1:46 PM EDT) Anatomical Region Laterality Modality Mammography 11/25/2023 9:39 AM EDT Narrative 11/25/2023 1:46 PM EDT [facility] Diagnostic Imaging Department [address] [place] [id number] Patient: ??MALUARIN GARCIA ?/Age/Sex: 1955 - 67 - F Unit#: ??[id number] ? Location/Status: ??SPDIMAM/REG CLI ? Mnemonic/Ordering Site: [...] MLO projections. 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 TISSUE DENSITY: b. [...] Mammogram performed at [facility] [address] [place] [address] Dictating Physician: ??YUDELKA ALICEA MD Electronically Signed by: ??YUDELKA ALICEA MD Dic Date/Time: ??11/25/23 1345 Sign date/Time: ??11/25/23 1346 Procedure Note Yudelka Alicea MD - 12/31/2023 [facility] Diagnostic Imaging Department [address] [place] [address] Patient: ARIN MOORE /Age/Sex: 1955 - 67 - F Unit#: [id number] [facility] Mnemonic/Ordering Site: [facility] Ordering Physician: JUSTO VALERIO MD [facility] Screening Digital - 11/25/23 - 1010 Report Status:Signed EXAM: [facility] Screening Digital EXAM DATE AND TIME: 11/25/2023 10:11 AM HISTORY: Screening. Personal history of left breast carcinoma treatedwith lumpectomy in 2016 followed by radiation treatment. Mother had breastcarcinoma at age 55. COMPARISON: 11/22/22, 11/20/21, 11/17/20 TECHNIQUE: Bilateral digital breast tomosynthesis was performed in the [facility]and MLO projections. Computer aided detection with [employer] 3D 3.1was employed. TISSUE DENSITY: b. There [...] Mammogram performed at [facility] [place] [address] Dictating Physician: YUDELKA ALICEA MD Electronically Signed by: YUDELKA ALICEA MD Dic Date/Time: 11/25/23 1345 Sign date/Time: 11/25/23 1346 us Justo Valerio MD IMG BI PROCEDURES Final Re sult from Last 3 Months or Most Recently Relevant to Health Maintenance Insurance MEDICARE [facility] Advance Directives Documents on File Type Date Recorded Patient Director Of Online Merchandising Expl anation Health Care Decision (hx) 01/24/2021 [...] (hx) 01/19/2021 AD SHELDON DIRECTIVE Care Teams Upholstered Goods Crafter Relationship Specialty Start Date End Date Justo Valerio MD [address] [place] [address] PCP - General Internal Medicine 06/29/20
== END 2024-07-29 16:18 | disposition home or self-care (01) ==
LOC: HO.HMCH 15:15
PROVIDERS: PCP Internal Medicine; Visit Provider Physician Assistant Medical
DX: Z00.00 Encounter for general adult medical examination without abnormal findings (principal); Z78.9 Other specified health status; E78.5 Hyperlipidemia, unspecified; D72.819 Decreased white blood cell count, unspecified

== ENCOUNTER → 2024-07-29 15:14 | Outpatient (BNVA) | payer MEDICARE, OTHER, SELFPAY | PROVIDERS: PCP Internal Medicine; Visit Provider Physician Assistant Medical | DX: Z00.00 Encounter for general adult medical examination without abnormal findings (principal); E78.9 Disorder of lipoprotein metabolism, unspecified; E78.5 Hyperlipidemia, unspecified; D72.819 Decreased white blood cell count, unspecified | CPT/HCPCS: 96127; 99497 ==

== ENCOUNTER 2024-08-25 16:31 | Outpatient (AMB) | payer MEDICARE, OTHER, SELFPAY ==
[2024-08-25 16:33] VITALS: BP 118/70; PULSE 83; TEMP 36.7; O2SAT 98; BMI 31.1
--- NOTE | 2024-08-25 16:33 | AM.OFFWIN_ITS ---
Intake Vital Signs 08/25/24 16:33 Height 5 ft 2 in Weight 170 lb BMI 31.1 BP 118/70 Blood Pressure Location Rt brachial Position Sitting Pulse 83 Pulse Source Pulse Oximeter Temp 98.0 F Temp Source Oral Pulse Oximetry (%) 98 Oxygen Delivery Method Room Air Intake Visit Reasons: EP-tetanus shot, stepped on a clock Patient Tobacco Use Status: Former Tobacco user Allergies mushroom [MUSHROOM] Allergy (Severe, Verified 08/25/24 16:34) ANAPHYLAXIS penicillamine Allergy (Unknown, Verified 08/25/24 16:34) Unknown penicillin V Allergy (Unknown, Verified 08/25/24 16:34) hives Do you need a note to return to daycare/school/sports/work: No HPI HPI Comments History of Present Illness Details History of Present Illness - The patient is a 68-year-old female pr esenting with a small wound on the bottom of her left foot. - The laceration occurred by stepping on a clock on the ground. She states she always gardens barefoot, and the patient was unsure if the skin was broken initially when she stepped on the clock but it is broken now. - The incident happened two days prior t o the visit, and the patient did not was h the area immediately. - The patient has a history of receiving tetanus and Tdap vaccinations, with the last dose administered four years ago. - The patient enjoys gardening and often walks barefoot in the garden. Physical Exam General: Cooperative, healthy appearing, comfortable, no acute distress and well developed Orientation: Patient oriented x3 Limitations: No limitations Head: Normal to inspection Ears: Hearing grossly normal bilaterally Nose: Normal External nose present Face and sinus: Normal facial exam Eyes: Appearance normal, both eyes and all related structures Neck: Normal visual inspection and Yes full ROM Respiratory: Normal respiratory effort and able to speak in complete sentences. Skin: 0.75cm linear superficial laceration on plantar aspect of left foot, base of great toe Neuro: Patient oriented x3 Extremities: Normal to inspection, except for a tiny cut on the base of the foot [facility] Medical History (Updated 08/25/24 @ 16:50 by Mehnaz Lyles PA-C) Hyperlipidemia LDL goal <100 Full code status Encounter for annual wellness exam in Medicare patient Spondylosis Annual physical exam History of left breast cancer Breast cancer Frozen shoulder Arthritis Hyperlipidemia Surgical History History of reverse total replacement of right shoulder joint History of colonoscopy History of cataract surgery History of total right knee replacement History of knee replacement procedure of left knee History of appendectomy History of oophorectomy History of lumpectomy History of hernia surgery Family History Mother Breast cancer, Onset Age: 52 Brother Renal cancer, Onset Age: 33 Maternal Aunt Breast cancer, Onset Age: 80 Social History Housing: House Alcohol intake: current Alcohol intake frequency: a few times a month Alcohol type: beer Patient Tobacco Use Status: Former Tobacco user Tobacco use type: Cigarette e-Cigarette/Vaping Use: Never Used Second Hand Smoke Exposure: Yes service: No Current occupational status: retired Cognitive needs: No Hearing needs: No Vision needs: Yes (glasses) Review of Systems Const All systems reviewed & are unremarkable except as noted in HPI and below Physical Exam Vital Signs: Last Vital Signs Temp 98.0 F 08/25/24 16:33 Pulse 83 08/25/24 16:33 BP 118/70 08/25/24 16:33 Pulse Ox 98 08/25/24 16:33 Oxygen Delivery Method Room Air 08/25/24 16:33 BMI result Body Mass Index 31.1 Immunizations Boostrix Tdap 2.5 Lf unit-8 mcg-5 Lf/0.5 mL intramuscular syringe Performing Provider: Mehnaz Lyles PA-C Performing Location: [facility] Administered by: Ganga Cristina CMA on 08/25/24 16:46 Dose Route Admin Location Dispensed Lot Number Expiration Date NDC [employer] 0.5 mL IM Right Deltoid 0.5 mL [id number] 11/10/26 76790-306-00 [employer] VIS Given Date VIS Provided VIS Publication Date 08/25/24 Single Vaccine 20 Eligibility Eligibility Date Funding Source Not [facility] Eligible 08/25/24 Private Assessment & Plan Assessment & Plan (1) Puncture wound of foot: Code(s): S91.339A - Puncture wound without foreign body, unspecified foot, initial encounter Qualifiers: Encounter type: initial encounter Laterality: left Qualified Code(s): S91.332A - Puncture wound without foreign body, left foot, initial encounter Plan: Plan - Administer tetanus prophylaxis due to the skin laceration and the patient's vaccination history. - Monitor the laceration for signs of infection, such as increased pain, oozing, or fever, and advise the patient to return if these symptoms occur. - With patient's allergy to amoxicillin, we had no choice but to prescribe 5 days of Levaquin, reviewed the black box warning with the patient and advised no high impact activity such as running or jumping for at least the next 6 weeks. Advised she is at risk for a tendon rupture while taking this medication and for the weeks following. Patient was informed and verbally consented to the use of an ambient scribe for clinic note documentation during this visit. Orders: Orders TDaP Immunization Today Z23 - Encounter for immunization Medications: New levofloxacin 750 mg PO Q24H 5 tabs 0RF Coding Level of Care Code Est Pt Level 3 (32954) Diagnoses Puncture wound of left foot, initial encounter S91.332A Encounter type: initial encounter Laterality: left
--- OUTSIDE RECORDS SUMMARY | 2024-08-25 18:20 | XMS_ITS ---
Author Name [facility] Organization Unknown History of Medication Use Medication Directions Dispensed Refills Start Date End Date Stat acetaminophen 500 mg tablet TAKE 2 TABLETS BY MOUTH EVERY 8 HOURS FOR MILD PAIN 04/10/2023 completed clindamycin HCl 300 mg capsule TAKE 2 CAPSULES BY MOUTH 1 HOUR PRIOR TO DENTAL APPOINTMENT. active simvastatin 20 mg tablet active Encounters Encounter Type Encounter Reason Primary Diagnosis Location Date Ambulatory [facility] 04/10/2023 Ambulatory [facility] 03/31/2023 Ambulatory [facility] 03/31/2023 Ambulatory [facility] 02/05/2023
== END 2024-08-25 16:47 | disposition home or self-care (01) ==
PROVIDERS: PCP Internal Medicine; Visit Provider Physician Assistant
DX: S91.332A Puncture wound without foreign body, left foot, initial encounter (principal)

== ENCOUNTER → 2024-08-25 16:31 | Outpatient (BNVA) | payer MEDICARE, OTHER, SELFPAY | PROVIDERS: PCP Internal Medicine; Visit Provider Physician Assistant | DX: Z23 Encounter for immunization (principal); S91.332A Puncture wound without foreign body, left foot, initial encounter | CPT/HCPCS: 90471; 90715; 99212 ==

== ENCOUNTER 2024-11-09 09:18 | Outpatient (AMB) | payer MEDICARE, OTHER, SELFPAY ==
--- NOTE | 2024-11-09 09:22 | A.OFFVIS_ITS ---
Vital Signs 11/09/24 09:23 Height 5 ft 2 in Weight 168 lb BMI 30.7 BP 113/58 L Blood Pressure Location Lt brachial Position Sitting Pulse 87 Pulse Oximetry (%) 97 Oxygen Delivery Method Room Air Intake Visit Reasons: colo screen Intake Note: Patient new consult for 4th pre Colonoscopy screening. Patient denies any GI issues. 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 Accompanied by: Self / Same As Patient Allergies mushroom (MUSHROOM) Allergy (Severe, Verified 11/09/24 09:22) ANAPHYLAXIS penicillamine Allergy (Unknown, Verified 11/09/24 09:22) Unknown penicillin V Allergy (Unknown, Verified 11/09/24 09:22) hives Medication List - Last Reconciled 11/09/24 by Quiana Valladares CNP aspirin 81 mg PO DAILY bisacodyl (Dulcolax (bisacodyl)) 20 mg (4 x 5 mg) PO ONCE 1 day cholecalciferol (vitamin D3) 25 mcg PO DAILY escitalopram oxalate 10 mg PO DAILY flaxseed oil 1,000 mg PO BID [id number] C-Mn 500-400 mg (Glucosamine-Chondroitin Complex) caps PO levofloxacin 750 mg PO Q24H PRN multivitamin caps PO PRN peg 3350-electrolytes 236-22.74-6.74 -5.86 gram 240 mL PO Q10M risperidone 0.25 mg PO DAILY simethicone (Gas Relief (simethicone)) 125 mg PO ONCE simvastatin 20 mg PO DAILY HPI HPI colo screen: Details: Patient is a 68-year-old female with PMH of hyperlipidemia and arthritis. Referred by PCP for pre colonoscopy screening This will be her fourth colonoscopy, with previous screenings at intervals due to initial obstacles. Her last colonoscopy in 2018 was successful, showing minor diverticulosis and one benign polyp. Over the years, she has managed chronic constipation, significantly alleviated by adding fruits to her yogurt. Presently, her bowel habits are more regular though she occasionally finds difficulty achieving an ideal balance, leaning towards softer stools. The patient reports no current episodes of blood in the stools or abdominal pain. Her body weight remains steady, between the upper 160s to lower 170s over time. With no recent incidences of nausea, vomiting, or substantial appetite changes, her gastrointestinal health seems pleasant heading into the procedure. Her medical history is notable for breast cancer, treated with radiation, and currently in remission. Patient denies: fever/chills, n/v, appetite changes, pyrosis, regurgitation,dysp hasia, unintentional wt loss, ab pain or melena/hematochezia. Social hx: - Alcohol consumption is limited to one beer per week. -denies recreational drug use -former smoker, cessation 2o years ago - family hx as below -denies significant cardiopulmonary history -tolerated anesthesia in the past without difficulty. [facility] Medical History (Updated 11/09/24 @ 10:20 by Quiana Valladares CNP) Chronic constipation Colon cancer screening Hyperlipidemia LDL goal <100 Full code status Encounter for annual wellness exam in Medicare patient Spondylosis Annual physical exam History of left breast cancer Breast cancer Frozen shoulder Arthritis Hyperlipidemia Surgical History History of reverse total replacement of right shoulder joint History of colonoscopy History of cataract surgery History of total right knee replacement History of knee replacement procedure of left knee History of appendectomy History of oophorectomy History of lumpectomy History of hernia surgery Family History (Updated 11/09/24 @ 10:04 by Quiana Valladares CNP) Mother Breast cancer, Onset Age: 52 Brother Renal cancer, Onset Age: 33 Maternal Aunt Breast cancer, Onset Age: 80 Sister Breast cancer Social History Housing: House Alcohol intake: current Alcohol intake frequency: a few times a month Alcohol type: beer Patient Tobacco Use Status: Former Tobacco user Tobacco use type: Cigarette e-Cigarette/Vaping Use: Never Used Second Hand Smoke Exposure: Yes service: No Current occupational status: retired Cognitive needs: No Hearing needs: No Vision needs: Yes (glasses) Review of Systems Const Reports as per HPI ENT Reports as per HPI Card Reports as per HPI Resp Reports as per HPI GI Reports as per HPI Reports as per HPI Physical Exam Vital Signs: Last Vital Signs Pulse 87 11/09/24 09:23 BP 113/58 L 11/09/24 09:23 Pulse Ox 97 11/09/24 09:23 Oxygen Delivery Method Room Air 11/09/24 09:23 BMI result Body Mass Index 30.7 Const General: healthy appearing, no acute distress and well developed Nutritional Appearance: average body habitus Orientation/consciousness: patient oriented x3 HEENT Head: Yes normal to inspection, Yes normocephalic and Yes atraumatic Face and sinus: Yes normal facial exam Eyes General: appearance normal, both eyes and all related structures Neck Neck: Yes normal visual inspection Resp Effort & Inspection: normal respiratory effort, able to speak in complete sentences, no tracheal deviation and symmetric chest movement Cardio Jugular venous distension: no JVD Neuro General: patient oriented x3 Gait exam (Neuro): Normal gait present Psych Appearance: grossly normal Mental Status: mental status grossly normal Speech and movement: Normal speech and movement present Affect: normal affect Attitude: cooperative Thought process: Normal thought process present Thought content: Normal thought content present Insight: Good insight present (Psych) Judgement: Good judgement present (Psych) Assessment & Plan Assessment & Plan (1) Colon cancer screening: Comment: 02/27/16 colonoscopy ( Dr. Wilkes) incomplete exam d/t inability to advance scope. Minor diverticulosis noted. 03/25/2017 colonoscopy (Dr. Wilkes) complete with excellent prep-minor diverticulosis, hyperplastic polyp ( transverse) Code(s): Z12.11 - Encounter for screening for malignant neoplasm of colon Category: Medical Plan: Due for polyp surveillance colonoscopy. No alarm features. Medications: -prescriptions for laxative tablets and PEG sent to pharmacy; instructions on clear liquid diet given. - understands ASA and flexseed will need to be held days prior to procedure. Nurse to review med holds per protocol. Patient educated on scheduling process, procedure preparation, including avoiding certain foods and ensuring clear liquid intake Advised on necessity for ride post-procedure due to sedation. (2) Chronic constipation: Code(s): K59.09 - Other constipation Category: Medical Plan: Mild and intermittent. Managed with lifestyle modification. Reinforced lifestyle modifications to promote regularity: -higher fiber diet, examples provided -adequate hydration with water -150 minutes of moderate intensity exercise per week Plan Follow-up after colonoscopy as warranted or sooner if needed Time: I spent a total of 30 minutes on the date of encounter which includes: Preparing to see the patient (reviewed previous documentation, test results and medical history) Performing a medically appropriate exam and/or evaluation Ordering medications, tests, and procedures Documenting clinical information in the health record Medications: New bisacodyl (Dulcolax (bisacodyl)) Take four tablets pre colonoscopy instructions 20 mg (4 x 5 mg) PO ONCE 4 tabs 0RF 1 day Quiana Valladares CNP simethicone (Gas Relief (simethicone)) per colonoscopy prep instructions 125 mg PO ONCE 4 caps 0RF abdominal distention Quiana Valladares CNP peg 3350-electrolytes 236-22.74-6.74 -5.86 gram until fecal effluent is clear 240 mL PO Q10M 4,000 mL 0RF Quiana Valladares CNP Changed From levofloxacin 750 mg PO Q24H 5 tabs 0RF To levofloxacin 750 mg PO Q24H PRN Mehnaz Lyles PA-C Coding Level of Care Code New Pt New Pt Level 3 (92687) Patient Type New Diagnoses Colon cancer screening Z12.11 Chronic constipation K59.09
[2024-11-09 09:23] VITALS: BP 113/58; PULSE 87; O2SAT 97; BMI 30.7
--- OUTSIDE RECORDS SUMMARY | 2024-11-09 09:44 | XMS_ITS | Clinical Summary ---
Author Organization [facility] Address [address] [place] [address] Care Team Providers Care Implementation Coordinator Name Role Phone Justo Haider MD Primary [...] 1 - PCV) 2018 Influenza Vaccine (#1) 2024 01/07/2017 RSV Adult > 60+ Yrs or Pregn ant (1 - 1-dose 75+ series) 2028 Hepatitis B Vaccines Aged Out No long er eligible based on patient's age to complete this topic RSV Ped < 20 months Aged Out No longe r eligible based on patient's age to complete this topic Care Teams Implementation Coordinator Relationship Specialty Start Date End Date Justo Haider MD [address] [place] [address] Dr Diaz [address] [place] [address] [place] [address] PCP - General Internal Medicine 06/29/20
--- OUTSIDE RECORDS SUMMARY | 2024-11-09 09:44 | XMS_ITS | Clinical Summary ---
Author Organization [facility] Address [address] [place] [phone] Phone Care Team Providers Care Packing Supervisor Name Role Phone Unavailable Primary Care Provider Unavailabl e Medications simvastatin (ZOCOR) 20 MG tablet Take 20 mg by mouth nightly at bedtime. 01/16/2023 Active aspirin 81 mg Cap Take 1 tablet by mouth daily. 01/16/2023 Active escitalopram oxalate (LEXAPRO) 10 MG tablet Take 10 mg by mouth daily. 01/16/2023 Active risperiDONE (RISPERDAL) 0.25 MG tablet Take 0.25 mg by mouth daily. 01/16/2023 Active ibuprofen (ADVIL,MOTRIN) 600 MG tablet Take 600 mg by mouth every 8 (eight) hours as needed for pain (specific location in comments) (R shoulder). 01/16/2023 Active acetaminophen (TYLENOL) 500 MG tablet Take 500 mg by mouth every 8 (eight) hours as needed for pain (specific location in comments) (R shoulder). 01/16/2023 Active HYDROmorphone (DILAUDID) 2 MG tablet Take 1 mg by mouth every 4 (four) hours as needed for pain (specific location in comments) (R shoulder pain). 1/2 tab every 4-6 hours as needed 01/16/2023 Active sennosides (SENNA) 8.6 mg Cap Take 2 tablets by mouth nightly at bedtime. 01/16/2023 Active multivit with minerals/lutein (MULTIVITAMIN 50 PLUS ORAL) Take 1 tablet by mouth daily. 01/16/2023 Active glucosamine sulfate (GLUCOSAMINE) 500 mg Tab Take 500 mg by mouth daily. 01/16/2023 Active Social History Tobacco Use Types Packs/Day Years Used Date Smoking Tobacco: Never Assessed Home Health Assessment: Transportation Answer Date Recorded Lack of Transportation (Medical) No 01/23/2023 Lack of Transportation (Non-Medical) No 01/23/2023 Patient Unable or Declines to Respond No 01/23/2023 Education Answer Date Recorded Are you interested in more education? Not on nick e 12/19/2022 Are you concerned about learning? Not on file 12/19/2022 No 12/19/2022 No 12/19/2022 Digital Access Answer Date Recorded No 12/19/2022 No 12/19/2022 Reliable internet access at home? Not on file 12/19/2022 Device with a working camera? Not on file Comments Unknown Sex and Gender Information Value Date Recorded Sex Assigned at Not on file Legal Sex Female 8:34 AM EDT Gender Identity Not on file Sexual Orientation Not on file Last Filed Vital Signs Vital Sign Reading Time Taken Comments Blood Pressure 106/68 01/23/2023 9:25 AM EST Pulse 86 01/23/2023 9:25 AM EST Temperature 36.6 C (97.9 F) 01/23/2023 9:25 AM EST Respiratory Rate - - Oxygen Saturation 98% 01/23/2023 9:25 AM EST Inhaled Oxygen Concentration - - Weight - - Height - - Body Mass Index - - Plan of Treatment Health Maintenance Due Date Last Done Comments Adult Td,Tdap Booster 1955 LIPID PANEL 1955 DEPRESSION SCREENING 1965 SMOKING Hx and SMOKELESS TOB ACCO SCREENING 1966 HEPATITIS C SCREENING 12/28/1971 MAMMOGRAM 1993 COLOGUARD 1998 COLONOSCOPY 1998 COLORECTAL CANCER SCREENING 1998 FIT TEST 1998 FOBT 1998 SIGMOIDOSCOPY 1998 VIRTUAL COLONOSCOPY 1998 PNEUMOCOCCAL VACCINES (50+ y ears) (1 of 1 - PCV) 12/28/2003 ZOSTER VACCINES (1 of 2) 12/28/2003 OSTEOPOROSIS SCREENING INITI AL (ONE-TIME) 2018 COVID-19 VACCINE (1 - 2023-2 5 season) 2023 RSV VACCINE (1 - 1-dose 75+ series) 2028 HEPATITIS A VACCINES Aged Out No long er eligible based on patient's age to complete this topic HIB VACCINES Aged Out No longer eligi ble based on patient's age to complete this topic MENINGOCOCCAL VACCINES (ACWY) Aged Out No longer eligible based on patient's age to complete this topic MENINGOCOCCAL VACCINES (B) Aged Out N o longer eligible based on patient's age to complete this topic Medical Devices Not on file Insurance MEDICARE PART A & B MEDICARE PART A & B MEDICARE PART A & B MEDICARE PART A & B MEDICARE PART A & B MEDICARE PART A & B Additional Source Comments The information contained in this document represents components of the legal health record. It is not the complete legal health record.[facility]
--- OUTSIDE RECORDS SUMMARY | 2024-11-09 09:44 | XMS_ITS ---
Author Name [facility] Organization Unknown History of Medication Use Medication Directions Dispensed Refills Start Date End Date Stat us acetaminophen 500 mg tablet TAKE 2 TABLETS BY MOUTH EVERY 8 HOURS FOR MILD PAIN 04/10/2023 completed clindamycin HCl 300 mg capsule TAKE 2 CAPSULES BY MOUTH 1 HOUR PRIOR TO DENTAL APPOINTMENT. active simvastatin 20 mg tablet active Allergies Allergen Reaction Severity Comment Documented Date Source Statu s PENICILLINS ENS_AONECT Encounters Encounter Type Encounter Reason Primary Diagnosis Location Date Ambulatory [facility] 04/10/2023 Ambulatory [facility] 03/31/2023 Ambulatory [facility] 03/31/2023 Ambulatory [facility] 02/05/2023
--- OUTSIDE RECORDS SUMMARY | 2024-11-09 09:44 | XMS_ITS | Clinical Summary ---
Author Organization [facility] Address [address] [place] [phone] Phone Care Team Providers Care Women'S Swim Coach Name Role Phone Justo Valerio MD Primary Care Provider [phone]- [phone] Surgical History Surgery Date Site/Laterality Comments SHOULDER [...] 01/14/2024 9:45 AM EDT Plan of Treatment Upcoming Encounters Date Type Department Care Team (Late st Contact Info) Description 11/26/2024 8:45 AM EDT Appointment [facility] [address] [id number] Health Maintenance Due Date Last Done Comments Zoster Vaccines (1 of 2) 1972 Pneumococcal Vaccine: 50+ Years (2 of 2 - PCV) 03/30/2020 03/30/2019 Colorectal Cancer Screening: Colonoscopy 02/16/2022 Falls Risk Assessment 02/16/2022 Hepatitis C Screening 02/16/2022 Medicare Annual Wellness Visit 02/16/2022 Social Influencers of Health Screening 02/16/2022 Depression Screening 03/17/2024 COVID-19 Vaccine (7 - Moderna risk season) 2024 01/12/2024, 02/15/2022, 09/10/2021, Additional history exists Influenza Vaccine (#1) 2024 4, 01/14/2022, 12/25/2020, Additional history exists Breast Cancer Screening 11/24/2025 11/25/19 24, 11/22/2022, 11/20/2021, Additional history exists RSV Immunization Adult Patients (1 - 1-dose 75+ series) 2028 DTaP,Tdap,and Td Vaccines (2 - Td or Tdap) 06/23/2030 06/23/2020 Osteoporosis Screening (Bone Density Screening) 02/24/2034 02/25/2024, 12/26/2020, 12/22/2018 HIB Vaccines Aged Out No longer eligi [...] Impressions 02/26/2024 7:59 AM EST 1. Osteopenia. There has been an increase of 0.4% in bone mineral density in the lumbar spine since the prior examination of 12/26/2020. There has been a decrease of 1.5% in bone mineral density in the right femur and an increase of 0.1% in bone mineral density in the left femur. 2. FRAX analysis yields a 10-year probability of major osteoporotic fracture of 13.6% and a 10-year probability of hip fracture of 1.4%. Code 36717 -------- FINAL REPORT -------- Dictated By: Cliff Read Dictated Date: 02/26/2024 07:56 ET Assigned Physician: Cliff Read Reviewed and Electronically Signed By: Cliff Read Signed Date: 02/26/2024 07:59 ET Workstation ID: [id number] Transcribed By: Self Edit Transcribed Date: 02/26/2024 07:57 ET Narrative 02/26/2024 7:59 AM EST HISTORY: The patient is a 68-year-old postmenopausal female with clinical concern for metabolic bone disease. FINDINGS: Dual energy x-ray absorptiometry of the lumbar spine and femurs is performed. The mean bone mineral density at L3-4 is 1.520 gm/cm2 which is 127% of that of young normals and 145% of that of age matched controls. This yields a T-score of 2.7 and a Z-score of 3.9 and there is therefore no evidence of osteoporosis or osteopenia here. The mean bone mineral density of the femurs bilaterally is 0.948 gm/cm2 which is 94% of that of young normals and 110% of that of age matched controls. This yields a T-score of -0.5 and [...] density of the femurs bilaterally is 0.948 gm/ag8hpqay is 94% of that of young normals [...] probability of hip fracture of 1.4%. Code 88719 -------- FINAL REPORT -------- Dictated By: Cliff Read Dictated Date: 02/26/2024 07:56 ET Assigned Physician: Cliff Read Reviewed and Electronically Signed By: Cliff Read Signed Date: 02/26/2024 07:59 ET Workstation ID: [id number] Transcribed By: Self Edit Transcribed Date: 02/26/2024 07:57 ET us Justo Valerio MD IMG DXA PROCEDURES Final R esult * VALERIA SCREENING DIGITAL (11/25/2023 1:46 PM EDT) Anatomical Region Laterality Modality Mammography 11/25/2023 9:39 AM EDT Narrative 11/25/2023 1:46 PM EDT [facility] Diagnostic Imaging Department [address] [place] [address] Patient: CHRISSERGEIARINO.B./Age/Sex: 1955 - 67 - F Unit#: [id number] Location/Status: [facility] Mnemonic/Ordering Site: [facility] Ordering Physician: JUSTO VALERIO MD Valeria Screening Digital - 11/25/23 - 1010 Report Status:Signed EXAM: [facility] Screening Digital EXAM DATE AND TIME: 11/25/2023 10:11 AM HISTORY: Screening. Personal history of left breast carcinoma treated with lumpectomy in 2016 followed by radiation treatment. Mother had breast carcinoma at age 55. COMPARISON: 11/22/22, 11/20/21, 11/17/20 TECHNIQUE: Bilateral digital breast tomosynthesis was performed in the CC and MLO projections. Computer aided detection with Inktd 3D 3.1 was employed. TISSUE DENSITY: b. [...] including lumpectomy changes in the left breast. No evidence of malignancy is seen. A negative mammogram in the presence of a clinically suspicious palpable abnormality does not preclude the possibility of malignancy or alter the indications for biopsy. BI-RADS: Category 2: Benign RECOMMENDATION(S): 1: Routine screening mammogram BILATERAL in 1 year. [facility] performed at [facility] [address] [place] [address] Dictating Physician: YUDELKA ALICEA MD Electronically Signed by: YUDELKA ALICEA MD Dic Date/Time: 11/25/23 1345 Sign date/Time: 11/25/23 1346 Procedure Note Yudelka Alicea MD - 12/31/2023 [facility] Diagnostic Imaging Department [address] [place] [address] Patient: ARIN MOORE /Age/Sex: 1955 - 67 - F Unit#: [id number] Location/Status: SPDIMAM/REG CLI Mnemonic/Ordering Site: [facility] Ordering Physician: JUSTO VALERIO MD [facility] Screening Digital - 11/25/23 - 1010 Report Status:Signed EXAM: [facility] Screening Digital EXAM DATE AND TIME: 11/25/2023 10:11 AM HISTORY: Screening. Personal history of left breast carcinoma treatedwith lumpectomy in 2016 followed by radiation treatment. Mother had breastcarcinoma at age 55. COMPARISON: 11/22/22, 11/20/21, 11/17/20 TECHNIQUE: Bilateral digital breast tomosynthesis was performed in the CCand MLO projections. Computer aided detection with Inktd 3D 3.1was employed. TISSUE DENSITY: b. There [...] Mammogram performed at [facility] [place] [address] Dictating Physician: YUDELKA ALICEA MD Electronically Signed by: YUDELKA ALICEA MD Dic Date/Time: 11/25/23 1345 Sign date/Time: 11/25/23 1346 us Justo Valerio MD IMG BI PROCEDURES Final Re sult from Last 3 Months or Most Recently Relevant to Health Maintenance Insurance MEDICARE [facility] Advance Directives Documents on File Type Date Recorded Patient Steam Table Attendant Expl anation Health Care Decision (hx) 01/24/2021 [...] (hx) 01/19/2021 AD SHELDON DIRECTIVE Care Teams Women'S Swim Coach Relationship Specialty Start Date End Date Justo Valerio MD [address] [place] [address] PCP - General Internal Medicine 06/29/20
== END 2024-11-09 10:12 | disposition home or self-care (01) ==
LOC: HO.HGI 09:19
PROVIDERS: PCP Internal Medicine; Visit Provider Nurse Practitioner Family
DX: K59.09 Other constipation (principal); Z12.11 Encounter for screening for malignant neoplasm of colon; Z86.0102 Personal history of hyperplastic colon polyps
CPT/HCPCS: 99203

== ENCOUNTER → 2024-11-09 09:18 | Outpatient (BNVA) | payer MEDICARE, OTHER, SELFPAY | PROVIDERS: PCP Internal Medicine; Visit Provider Nurse Practitioner Family | DX: Z12.11 Encounter for screening for malignant neoplasm of colon (principal); K59.09 Other constipation | CPT/HCPCS: 99202 ==

== ENCOUNTER 2025-02-17 09:59 | Outpatient (AMB) | payer MEDICARE, OTHER, SELFPAY ==
--- NOTE | 2025-02-17 10:15 | A.OFFPC_ITS ---
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: No Gluing Machine Adjuster: Not Required per policy Accompanied by: Self / Same As Patient Allergies mushroom (MUSHROOM) Allergy (Severe, Verified 02/17/25 10:43) ANAPHYLAXIS penicillamine Allergy (Unknown, Verified 02/17/25 10:43) Unknown penicillin V Allergy (Unknown, Verified 02/17/25 10:43) hives Medication List - Last Reconciled 02/17/25 by Justo Haider MD aspirin 81 mg PO DAILY cholecalciferol (vitamin D3) 25 mcg PO DAILY escitalopram oxalate 10 mg PO DAILY flaxseed oil 1,000 mg PO BID avmalvntsva-hwcnedmls-qhy C-Mn 500-400 mg (Glucosamine-Chondroitin Complex) caps PO multivitamin caps PO PRN peg 3350-electrolytes 236-22.74-6.74 -5.86 gram 240 mL PO Q10M risperidone 0.25 mg PO DAILY simethicone (Gas Relief (simethicone)) 125 mg PO ONCE simvastatin 20 mg PO DAILY Tobacco use date assessed: 02/17/25 Fall risk assessment: 1 Fall in past year Last assessed Fall Risk: 02/17/25 Dental Screening Dental Screen Date: 02/17/25 Did you have a dental visit in the last 12 months?: Yes Did you have a dental problem in the last 6 months where you did not have access to dental care?: No Was dental information given to patient?: Patient has dentist HPI HPI Comments History of Present Illness Details History of Present Illness - The patient is a 69 year old female pr esenting for a routine health maintenance visit. - The patient reports no acute health co ncerns today. - Her current medications include aspiri n, vitamin D, citalopram (Lexapro), flaxseed oil, glucosamine, and simvastatin. - She no longer takes a stool softener, which she reports was used as needed after previous operations. - She has a history of breast cancer and reports she is doing better. - She reports developing a tendency to k nock things over when reaching, similar to her mother, which she associates with right arm problems. - Regarding health maintenance, she has received both the flu and COVID-19 shots. - She is up to date on her mammogram and has undergone a pre-appointment for a colonoscopy, but is awaiting a call for scheduling. - Blood work performed in July of this ye ar was normal, showing no anemia, and normal kidney, liver, and cholesterol values. Social History - The patient lives alone and is retired . - She is active with [employer], drives during the day and night, and has friends and family. - The patient does not have children or pets. 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 Results - Labs (July 2022): No anemia; normal kid henrik functions; normal liver functions; cholesterol is in range. - Screening: Mammogram is up to date. [facility] Medical History (Updated 11/09/24 @ 10:20 by Quiana Valladares CNP) Chronic constipation Colon cancer screening Hyperlipidemia LDL goal <100 Full code status Encounter for annual wellness exam in Medicare patient Spondylosis Annual physical exam History of left breast cancer Breast cancer Frozen shoulder Arthritis Hyperlipidemia Surgical History History of reverse total replacement of right shoulder joint History of colonoscopy (~03/25/17) History of cataract surgery History of total right knee replacement History of knee replacement procedure of left knee History of appendectomy History of oophorectomy History of lumpectomy History of hernia surgery Family History Mother Breast cancer, Onset Age: 52 Brother Renal cancer, Onset Age: 33 Maternal Aunt Breast cancer, Onset Age: 80 Sister Breast cancer Social History Housing: House Alcohol intake: current Alcohol intake frequency: a few times a month Alcohol type: beer Patient Tobacco Use Status: Former Tobacco user Tobacco use type: Cigarette e-Cigarette/Vaping Use: Never Used Second Hand Smoke Exposure: Yes service: No Current occupational status: retired Cognitive needs: No Hearing needs: No Vision needs: Yes (glasses) Questionnaire PHQ-9 Over the last 2 weeks, how often have you been bothered by any of the following problems? 1. Little interest or pleasure in doing things: not at all 2. Feeling down, depressed, or hopeless: not at all 3. Trouble falling or staying asleep, or sleeping too much: not at all 4. Feeling tired or having little energy: not at all 5. Poor appetite or overeating: not at all 6. Feeling bad about yourself - or that you are a failure or have let yourself or your family down: not at all 7. Trouble concentrating on things, such as reading the newspaper or watching television: not at all 8. Moving or speaking so slowly that other people could have noticed. Or the opposite - being so fidgety or restless that you have been moving around a lot more than usual: not at all 9. Thoughts that you would be better off or of hurting yourself in some way: not at all Total score: 0 Depression Screening Interpretation: Negative Depression Screening Done: Yes Source: Developed by Drs. Guy Lewis, Hermelinda Ruth, Kamaljit Tam and colleagues, with an educational samantha from [employer]. Thrive Questionnaire Date Thrive assessed: 02/17/25 I am a: Patient What is your living situation today?: I have a steady place to live Within the past 12 months, did the food you bought not last and you didn't have the money to get more?: Never true Within the past 12 months, did you worry whether your food would run out before you got money to buy more?: Never true Do you have trouble paying for medicines?: No Do you have trouble getting transportation to medical appointments?: No Do you have trouble paying your heating and electricity bill?: No Do you have trouble taking care of your child, family member or friend?: No Do you have trouble with day-to-day activities such as bathing, preparing meals, shopping, managing finances, etc.?: No Are you currently unemployed and looking for a job?: No Are you interested in more education?: Yes Please select the resources that you would like help with: None Currently or been in a relationship where the following occur: No concerns reported THRIVE Score: 0 AUDIT C Alcohol Use Questionnaire (AUDIT-C) 1. How often do you have a drink containing alcohol?: 2-3 times a week Total Score: 3 BLAZE-7 AMB Questionnaire BLAZE-7 Date BLAZE - 7 assessed: 02/17/25 Feeling nervous, anxious, or on edge: 0 = Not at all Not being able to stop or control worryin = Not at all Worrying too much about different things: 0 = Not at all Trouble relaxin = Not at all Being so restless that it is hard to sit still: 0 = Not at all Becoming easily annoyed or irritable: 0 = Not at all Feeling afraid as if something awful might happen: 0 = Not at all Total BLAZE-7 score (0-4 normal; 5-9 mild; 10-14 moderate; 15-21 severe): 0 Source: Developed by Drs. Guy Lewis, Hermelinda Ruth, Kamaljit Tam and colleagues, with an educational samantha from [employer]. Review of Systems Narrative Review of Systems - CONSTITUTIONAL: Denies any acute concerns. - EYES: Denies halos while driving at night. - EARS: Reports good hearing. - NEUROLOGICAL: Reports a new tendency to knock objects over when reaching, which she relates to a problem with her right arm. - GENITOURINARY: Denies urinary incontinence but reports a change in urination. Reports improvement in nocturia to 1-2 times per night. - GASTROINTESTINAL: Reports good bowel movements. - PSYCHIATRIC: Reports sleeping well. Physical exam (Primary Care) Vital Signs: Last Vital Signs Temp 97.1 F 02/17/25 10:16 Pulse 78 02/17/25 10:16 BP 132/60 02/17/25 10:16 Pulse Ox 97 02/17/25 10:16 Oxygen Delivery Method Room Air 02/17/25 10:16 BMI result Body Mass Index 32.4 Tobacco/Smoking Status: Tobacco use Status Tobacco use date assessed 02/17/25 02/17/25 10:22 Patient Tobacco Use Status Former Tobacco user 02/17/25 10:22 Tobacco use type Cigarette 02/17/25 10:22 e-Cigarette/Vaping Use Never Used 02/17/25 10:22 PHQ-9: PHQ-9 Score PHQ-9: Total score 0 02/17/25 10:22 Depression Screening Interpretation: Negative Thrive Assessment: Date of Thrive Assessment Date Thrive assessed 02/17/25 02/17/25 10:22 Currently or been in a relationship where the following occur: No concerns reported Narrative Physical Exam General: Cooperative and healthy appearing Nutritional Appearance: Well nourished Orientation/consciousness: Patient oriented x3 Limitations: No limitations Head: Normal to inspection General: Appearance normal, both eyes and all related structures Neck: Normal visual inspection Chest: Normal palpation of entire chest wall Respiratory: Normal respiratory effort Neurology: Patient oriented x3 Coding Level of Care Code Est Pt Level 4 (96319) Complex visit Add On G2211 Diagnoses Familial hypercholesterolemia E78.01 Hyperlipidemia type: familial hypercholesterolemia Assessment & Plan Assessment & Plan (1) Hyperlipidemia: Code(s): E78.5 - Hyperlipidemia, unspecified Category: Medical Qualifiers: Hyperlipidemia type: familial hypercholesterolemia Qualified Code(s): E78.01 - Familial hypercholesterolemia Plan Plan - Hyperlipidemia: Continue simvastatin. A refill will be sent to [facility] mail order pharmacy. - Health Maintenance: The patient will defer repeat blood work for six months at her request. - Health Maintenance: Patient to proceed with colonoscopy as planned. - Health Maintenance: Continue current medications as prescribed. - Cerumen Impaction: Advised that removal of ear wax is not necessary unless it begins to affect her hearing. - Follow-up: Schedule a follow-up visit in six months for reassessment and lab work. Discussion Notes I reviewed the patient's current health status and medications, noting she has no new concerns at this time. We discussed that her lab work from July 2022 was normal, and she preferred to repeat it in six months, to which I agreed. I confirmed she is up-to-date on her mammogram, flu, and COVID-19 vaccinations. We discussed her pending colonoscopy and the need for a refill of her simvastatin, which I will send to her mail-order pharmacy. After examining her ears and noting some wax, I advised her that removal is only necessary if it affects her hearing. We will follow up in six months for a recheck and labs. Patient Instructions - Continue taking all your current medications as directed. - A new prescription for your cholesterol medication, simvastatin, will be sent to your [facility] mail-order pharmacy. - Please proceed with your colonoscopy when you are called for scheduling. - The wax in your ears is not a problem right now. You only need to have it removed if it starts to bother your hearing. - We will plan to do your next set of blood tests in about six months. - Please schedule a follow-up appointment in our office in six months. Medications: Refilled simvastatin 20 mg PO DAILY 90 tabs 3RF E78.01 - Familial hypercholesterolemia Discontinued bisacodyl (Dulcolax (bisacodyl)) Take four tablets pre colonoscopy instructions Discontinued Reason: Doctor's Order 20 mg (4 x 5 mg) PO ONCE 1 day 4 tabs 0RF
[2025-02-17 10:16] VITALS: BP 132/60; PULSE 78; TEMP 36.2; O2SAT 97; BMI 32.4
--- OUTSIDE RECORDS SUMMARY | 2025-02-17 11:45 | XMS_ITS | Clinical Summary ---
Author Organization [facility] Address [address] [place] [phone] Phone Care Team Providers Care Rolled Ham Lacer Name Role Phone Justo Haider MD Primary Care Provider [phone] Allergies Active Allergy Reactions Criticality Noted Date Comments Mushroom 04/29/2022 Other reaction(s): ANAPHYLAXIS-PER H&P Penicillins Hives 06/29/2020 Other Reaction(s): Hives/Urticaria, Not available Medications acetaminophen (TYLENOL) 500 mg tablet Take 1 tablet (500 mg total) by mouth every 8 hours as needed. 05/25/2021 Active aspirin 81 mg capsule Take 1 tablet by mouth daily. 01/16/2023 Active cholecalciferol (VITAMIN D-3) 25 mcg (1,000 unit) tablet Take 1 tablet (1,000 Units total) by mouth. Active escitalopram (LEXAPRO) 10 mg tablet 12/05/2021 Active glucosamine sulfate 500 mg tablet Take 1 tablet (500 mg total) by mouth daily. 01/16/2023 Active ibuprofen (ADVIL,MOTRIN) 600 mg tablet Take 1 tablet (600 mg total) by mouth every 8 hours as needed. 01/16/2023 Active methocarbamoL (ROBAXIN) 750 mg tablet Take 1 tablet (750 mg total) by mouth 3 (three) times a day if needed. 05/28/2021 Active GaviLyte-G 236-22.74-6.74 -5.86 gram solution 240 ML ORALLY EVERY 10 MINUTES UNTIL FECAL EFFLUENT IS CLEAR 11/09/2024 Active risperiDONE (RisperDAL) 0.25 mg tablet 11/11/2016 Acti ve simvastatin (ZOCOR) 20 mg tablet 03/25/2016 Active Encounters Date Type Department Care Team Description 02/02/2025 10:45 AM EST Office Visit Orthopedic Surgery - [place] [address] [facility] [address] [place] [phone] Xavier Fonseca MD Right shoulder pain (Primary Dx); S/P reverse total shoulder arthroplasty, right 11/26/2024 8:32 AM EDT - 11/26/2024 11:59 PM EDT [facility] [address] [phone] Encounter for screening mammogram for breast cancer Discharge Disposition: Home or Self Care from Last 3 Months Surgical History Surgery Date Site/Laterality Comments SHOULDER SURGERY 01/14/2023 Right PROCEDURE: HISTORICAL SHOULDER SURGERY; COMMENT: RTSA STEREOTACTIC CORE BIOPSY Left Medical History Medical History Date Comments Breast cancer (CMS/HCC V24, CMS/HCC V28) Family History Medical History Relation Name Comments Breast cancer Mother Breast cancer Mother's Sister Breast cancer Sister Relation Name Status Comments Mother Mother's Sister Sister Social History Tobacco Use Types Packs/Day Years Used Date Smoking Tobacco: Never Smokeless Tobacco: Never Alcohol Use Standard Drinks/Week Comments Never 0 (1 standard drink = 0.6 oz pur e alcohol) Comments No Sex and Gender Information Value Date Recorded [...] - - Weight 77.1 kg (170 lb) 11/26/2024 8:46 AM EDT Height 158.8 cm (5' 2.5 ) 11/26/2024 8:46 AM EDT Body Mass Index 30.6 11/26/2024 8:46 AM EDT Plan of Treatment Health Maintenance Due Date Last Done Comments Colorectal Cancer Screening: Colonoscopy 1955 Zoster Vaccines (1 of 2) 1972 Pneumococcal Vaccine: 50+ Years (2 of 2 - PCV) 03/30/2020 03/30/2019 Falls Risk Assessment 02/16/2022 Hepatitis C Screening 02/16/2022 Medicare Annual Wellness Visit 02/16/2022 Social Influencers of Health Screening 02/16/2022 Depression Screening 03/17/2024 COVID-19 Vaccine ( season) 2024 01/12/2024, 02/15/2022, 09/10/2021, Additional history exists Influenza Vaccine (#1) 2024 4, 01/14/2022, 12/25/2020, Additional history exists Breast Cancer Screening 11/26/2026 11/27/19 25, 11/25/2023, 11/22/2022, Additional history exists RSV Immunization Adult Patients [...] Procedure Name Priority Date/Time Associated Diagnosis Comments XR SHOULDER 2+ VIEWS RIGHT Routine 02/02/2025 10:44 AM EST Right shoulder pain MG MAMMO DIGITAL SCREENING W ISAC BILAT Routine 11/26/2024 8:55 AM EDT Encounter for screening mammogram for breast cancer BD BONE DENSITY DXA AXIAL SKELETON Routine 02/25/2024 1:46 PM EST Age-related osteoporosis without current pathological fracture from Last 3 Months or Most Recently Relevant to Health Maintenance Results * XR Shoulder 2+ Views Right (02/02/2025 10:44 AM EST) Anatomical Region Laterality Modality Upper Extremities, Shoulder Right Comp uted Radiography Narrative 02/02/2025 11:04 AM EST Right shoulder x-rays February 02, 2025. AP, Grashey, Y lateral. Reverse arthroplasty remains in good position. No acute osseous abnormalities. I do not appreciate any significant signs of loosening or interval change in position of the prosthesis. us Xavier Fonseca MD IMG XR PROCEDURES Final Result * MG Mammo Digital Screening w Isac bilat (11/26/2024 8:55 AM EDT) Anatomical Region Laterality Modality Breast Bilateral Mammography 11/26/2024 8:57 AM EDT Impressions 11/26/2024 9:02 AM EDT No mammographic evidence of malignancy. A negative mammogram in the presence of a clinically suspicious palpable abnormality does not preclude the possibility of malignancy or alter the indications for biopsy. PQRI CPT II 3342F Code 21960, 90713 PQRI 225 CPT II 7025F TISSUE DENSITY: There are scattered areas of fibroglandular density. (BI-RADS category B) IMPRESSION: No mammographic evidence of malignancy. Stable postlumpectomy changes in the left breast. BI-RADS CATEGORY: 2 - BENIGN RECOMMENDATION: Screening bilateral mammogram is recommended in 1 year. Mammo Location: [facility], [address] [place] [address] -------- FINAL REPORT -------- Dictated By: Cliff Read Dictated Date: 11/26/2024 08:57 ET Assigned Physician: Cliff Read Reviewed and Electronically Signed By: Cliff Read Signed Date: 11/26/2024 09:02 ET Workstation ID: [id number] Transcribed By: Self Edit Transcribed Date: 11/26/2024 08:58 ET Narrative 11/26/2024 9:02 AM EDT CLINICAL: The patient is a 68 years Female presenting for routine screening mammography. The patient has a personal history of left breast carcinoma treated with lumpectomy in 2016, followed by radiation. The patient has a family history of breast cancer involving her mother at age 55. COMPARISON: Most recently 11/25/2023 and most remotely 10/23/2017. TECHNIQUE: Full-field digital mammography of the breasts bilaterally consisting of tomosynthesis in MLO and CC projection is performed in the HyprKey 2000-D unit. Computer aided detection utilizing the iCAD system was utilized. FINDINGS: The breasts are again seen to be composed of a combination of fatty and fibroglandular elements. Asymmetry with surgical clips is again present anteromedially in the left breast, representing the lumpectomy site. This is stable in appearance. A few scattered benign calcifications are again present bilaterally. There is no suspicious cluster of microcalcifications, mass, or new area of architectural distortion. There is no skin thickening or nipple retraction. Procedure Note Cliff Read MD - 11/26/2024 CLINICAL: The patient is a 68 years Female presenting for routinescreening mammography. The patient has a personal history of left breastcarcinoma treated with lumpectomy in 2016, followed by radiation. Thepatient has a family history of breast cancer involving her mother at age55. COMPARISON: Most recently 11/25/2023 and most remotely 10/23/2017. TECHNIQUE: Full-field digital mammography of the breasts bilaterallyconsisting of tomosynthesis in MLO and CC projection is performed in theHyprKey 2000-D unit. Computer aided detection utilizing the iCADsystem was utilized. FINDINGS: The breasts are again seen to be composed of a combination offatty and fibroglandular elements. Asymmetry with surgical clips is againpresent anteromedially in the left breast, representing the lumpectomysite. This is stable in appearance. A few scattered benigncalcifications are again present bilaterally. There is no suspiciouscluster of microcalcifications, mass, or new area of architecturaldistortion. There is no skin thickening or nipple retraction. IMPRESSION: No mammographic evidence of malignancy. A negative mammogram in the presence of a clinically suspicious palpableabnormality does not preclude the possibility of malignancy or alter theindications for biopsy. PQRI CPT II 3342F Code 59051, 81101 PQRI 225 CPT II 7025F TISSUE DENSITY: There are scattered areas of fibroglandular density.(BI-RADS category B) IMPRESSION: No mammographic evidence of malignancy. Stable postlumpectomy changes inthe left breast. BI-RADS CATEGORY: 2 - BENIGN RECOMMENDATION: Screening bilateral mammogram is recommended in 1 year. Mammo Location: [facility], [facility], [address] [place] [id number] -------- FINAL REPORT -------- Dictated By: Cliff Read Dictated Date: 11/26/2024 08:57 ET Assigned Physician: Cliff Read Reviewed and Electronically Signed By: Cliff Read Signed Date: 11/26/2024 09:02 ET Workstation ID: [id number] Transcribed By: Self Edit Transcribed Date: 11/26/2024 08:58 ET us Self Referral Sppl IMG BI PROCEDURES Final Resul t * BD Bone Density DXA Axial Skeleton [...] probability of hip fracture of 1.4%. Code 28869 -------- FINAL REPORT -------- Dictated By: Cliff Read Dictated Date: 02/26/2024 07:56 ET Assigned Physician: Cliff Read Reviewed and Electronically Signed By: Cliff Read Signed Date: 02/26/2024 07:59 ET Workstation ID: [id number] Transcribed By: Self Edit Transcribed Date: 02/26/2024 [...] density of the femurs bilaterally is 0.948 gm/xs0etjnn is 94% of that of young normals [...] probability of hip fracture of 1.4%. Code 20722 -------- FINAL REPORT -------- Dictated By: Cliff Read Dictated Date: 02/26/2024 07:56 ET Assigned Physician: Cliff Read Reviewed and Electronically Signed By: Cliff Read Signed Date: 02/26/2024 07:59 ET Workstation ID: [id number] Transcribed By: Self Edit Transcribed Date: 02/26/2024 07:57 ET Justo Haider MD IMG DXA PROCEDURES Final R esult from Last 3 Months or Most Recently Relevant to Health Maintenance Insurance MEDICARE [facility] Advance Directives Documents on File Type Date Recorded Patient Manager Vehicle Expl anation Health Care Decision (hx) 01/24/2021 [...] (hx) 01/19/2021 AD SHELDON DIRECTIVE Care Teams Rolled Ham Lacer Relationship Specialty Start Date End Date Justo Haider MD [facility] [address] [place] [address] [address] [place] [id number] PCP - General Internal Medicine 06/29/20
--- OUTSIDE RECORDS SUMMARY | 2025-02-17 11:45 | XMS_ITS | Clinical Summary ---
Author Organization [facility] Address [address] [facility] [address] [place] [phone] Phone Care Team Providers Care Paraprofessional Aide Name Role Phone Unavailable Primary Care Provider [...] 12/28/2003 OSTEOPOROSIS SCREENING INITI AL (ONE-TIME) 2018 INFLUENZA VACCINE (#1) 2024 COVID-19 VACCINE (1 - 2024-2 6 season) 2024 RSV VACCINE (1 - 1-dose 75+ series) [...] It is not the complete legal health record.[facility]
--- OUTSIDE RECORDS SUMMARY | 2025-02-17 11:45 | XMS_ITS | Clinical Summary ---
Author Organization [facility] Prior to 08/14/[address] [place] [phone] Care Team Providers Care Optical Glass Silverer Name Role Phone Justo Haider MD Primary [...] age to complete this topic Care Teams Optical Glass Silverer Relationship Specialty Start Date End Date Justo Haider MD [address] [place] [address] Dr Atkinson [facility] [place] [address] PCP - General Internal Medicine 06/29/20
== END 2025-02-17 10:43 | disposition home or self-care (01) ==
LOC: HO.HMCH 10:00
PROVIDERS: PCP Internal Medicine; Visit Provider Internal Medicine
DX: E78.5 Hyperlipidemia, unspecified (principal)

== ENCOUNTER → 2025-02-17 09:59 | Outpatient (BNVA) | payer MEDICARE, OTHER, SELFPAY | PROVIDERS: PCP Internal Medicine; Visit Provider Internal Medicine | DX: E78.019 Familial hypercholesterolemia, unspecified (principal); Z13.31 Encounter for screening for depression; Z13.39 Encounter for screening examination for other mental health and behavioral disorders; Z79.899 Other long term (current) drug therapy | CPT/HCPCS: 96127; 99212 ==